=== PATIENT | male | born 1970 | race African-American/Black ===

== ENCOUNTER 2018-03-15 13:26 | Inpatient (IN) | payer OTHER ==
[2018-03-15 14:13] VITALS: BMI 26.9
--- NOTE | 2018-03-15 17:51 | HP ---
CIWA Score - CIWA Score Nausea/Vomitin-No Nausea/No Vomiting Muscle Tremors: 2 Anxiety: 4-Mod. Anxious/Guarded Agitation: 4-Moderately Restless Paroxysmal Sweats: 3 Orientation: 0-Oriented Tacttile Disturbances: 1-Very Mild Itch/Numbness Auditory Disturbances: 1-Very Mild Visual Disturbances: 0-None Headache: 0-None Present CIWA-Ar Total Score: 15 Admission ROS S - HPI Chief Complaint: alcohol withdrawal symptoms Allergies/Adverse Reactions: Allergies Allergy/AdvReac Type Severity Reaction Status Date / Time Penicillins Allergy Verified 03/15/18 17:11 History of Present Illness: 47 yo male with hx of nicotine, alcohol and cocaine dependence is here for alcohol detox. Last detox [facility] 04/08/18 - 04/13/16. PMHX: HIV+, bipolar, depression and depression. Denies suicidal / homicidal ideation. Denies hx of suicide attempts. Reports hx of auditory hallucinations, denies having hallucinations at this time. Denies hx of DTs, seizures or blackouts. Longest period of sobriety three years. Exam Limitations: No Limitations - Ebola screening Have you traveled outside of the country in the last 21 days: No Have you had contact with anyone from an Ebola affected area: No Have you been sick,other than usual withdrawal symptoms: No Do you have a fever: No - Review of Systems Constitutional: Chills, Loss of Appetite, Changes in sleep EENT: reports: Dental Problems (missing teeth) Respiratory: reports: No Symptoms reported Cardiac: reports: No Symptoms Reported GI: reports: Poor Appetite, Poor Fluid Intake : reports: No Symptoms Reported Musculoskeletal: reports: No Symptoms Reported Integumentary: reports: No Symptoms Reported Neuro: reports: Tremors Endocrine: reports: No Symptoms Reported Hematology: reports: No Symptoms Reported Psychiatric: reports: Orientated x3, Anxious Other Systems: Reviewed and Negative Patient History - Patient Medical History Hx Anemia: No Hx Asthma: No Hx Chronic Obstructive Pulmonary Disease (COPD): No Hx Cancer: No Hx Cardiac Disorders: No Hx Congestive Heart Failure: No Hx Hypertension: No Hx Hypercholesterolemia: No Hx Pacemaker: No HX Cerebrovascular Accident: No Hx Seizures: No Hx Dementia: No Hx Diabetes: No Hx Gastrointestinal Disorders: No Hx Liver Disease: No Hx Genitourinary Disorders: No Hx Sexually Transmitted Disorders: No Hx Renal Disease (ESRD): No Hx Thyroid Disease: No Hx Human Immunodeficiency Virus (HIV): Yes ( ) Hx Hepatitis C: No Hx Depression: Yes Hx Suicide Attempt: No Hx Bipolar Disorder: Yes Hx Schizophrenia: No - Patient Surgical History Past Surgical History: No Hx Neurologic Surgery: No Hx Cataract Extraction: No Hx Cardiac Surgery: No Hx Lung Surgery: No Hx Breast Surgery: No Hx Breast Biopsy: No Hx Abdominal Surgery: No Hx Appendectomy: No Hx Cholecystectomy: No Hx Genitourinary Surgery: No Hx Section: No Hx Orthopedic Surgery: No Anesthesia Reaction: No - PPD History Previous Implant?: Yes Documented Results: Negative w/proof Date: 02/13/16 Results: 0 mm PPD to be Administered?: Yes - Smoking Cessation Smoking history: Current every day smoker Have you smoked in the past 12 months: Yes Aproximately how many cigarettes per day: 5 Cigars Per Day: 0 Hx Chewing Tobacco Use: No Initiated information on smoking cessation: Yes 'Breaking Loose' booklet given: 03/15/18 - Substance & Tx. History Hx Alcohol Use: Yes Hx Substance Use: Yes Substance Use Type: Alcohol, Cocaine Hx Substance Use Treatment: Yes (Last detox [facility] 04/08/18 - 04/13/16) - Substances Abused Alcohol Route: Oral Frequency: Daily Amount used: liquor- 5 pints, beer- 2 six pack Age of first use: 9 Date of Last Use: 03/15/18 Crack Route: Smoking Frequency: Daily Amount used: 5 bags Age of first use: 20 Date of Last Use: 03/15/18 Family Disease History - Family Disease History Family Disease History: Other: Father (, liver cirrhosis ) Admission Physical Exam [facility] - Vital Signs Vital Signs: Vital Signs - 24 hr 03/15/18 14:12 Temperature 98.7 F Pulse Rate 98 H Respiratory 20 Rate Blood Pressure 133/73 - Physical General Appearance: Yes: Disheveled, Mild Distress, Alcohol on Breath, Sweating , Anxious HEENTM: Yes: EOMI, Hearing grossly Normal, Normal ENT Inspection, Normocephalic , Normal Voice, AMIRA, Pharynx Normal, Tm's normal, Other (poor dentition) Respiratory: Yes: Within Normal Limits Neck: Yes: Within Normal Limits Breast: Yes: Breast Exam Deferred Cardiology: Yes: Regular Rhythm, Regular Rate Abdominal: Yes: Normal Bowel Sounds, Non Tender, Flat, Soft Genitourinary: Yes: Within Normal Limits Back: Yes: Normal Inspection Musculoskeletal: Yes: full range of Motion, Gait Steady, Pelvis Stable Extremities: Yes: Normal Capillary Refill, Normal Inspection, Normal Range of Motion, Non-Tender Neurological: Yes: soft top installer II-XII NML intact, Fully Oriented, Alert, Motor Strength 5/5, Depressed Affect Integumentary: Yes: Normal Color, Warm, Diaphoresis Lymphatic: Yes: Within Normal Limits - Diagnostic (1) Alcohol dependence with withdrawal, uncomplicated Current Visit: Yes Status: Acute (2) Cocaine dependence, uncomplicated Current Visit: Yes Status: Acute (3) HIV (human immunodeficiency virus infection) Current Visit: Yes Status: Chronic (4) Nicotine dependence Current Visit: Yes Status: Chronic Qualifiers: Nicotine product type: cigarettes Substance use status: uncomplicated Qualified Code(s): F17.210 - Nicotine dependence, cigarettes, uncomplicated (5) Psychiatric disorder Current Visit: Yes Status: Suspected Cleared for Admission [facility] - Detox or Rehab [facility] Level of Care: Medically Managed Detox Regimen/Protocol: Librium [facility] Breath Alcohol Content Breath Alcohol Content: 0.114 Urine Drug Screen - Results Drug Screen Negative: No Urine Drug Screen Results: ESTRELLA-Cocaine
[2018-03-15] MEDS ORDERED: hydrOXYzine PAMOATE 50 MG CAPSULE (FP) PO PRN (17:53)
[2018-03-15] MEDS ORDERED: MAGNESIUM CITRATE 300 ML BOTTLE PO PRN (17:53)
[2018-03-15] MEDS ORDERED: LOPERAMIDE HCL 2 MG CAPSULE PO PRN (17:53)
[2018-03-15] MEDS ORDERED: P-EPHED 60MG/TRIPROLIDI 2.5MG TABLET PO PRN (17:53)
[2018-03-15] MEDS ORDERED: NICOTINE POLACRILEX 2 MG GUM BC PRN (17:53)
[2018-03-15] MEDS ORDERED: MAGNESIUM HYDROX 2400MG/30ML ORAL SUSPENSION 30 ML CUP PO PRN (17:53)
[2018-03-15] MEDS ORDERED: ACETAMINOPHEN 325 MG TABLET (FP) PO PRN (17:53)
[2018-03-15] MEDS ORDERED: guaiFENesin/D-METHORPHAN HB 10 ML UNIT-DOSE CUPS PO PRN (17:53)
[2018-03-15] MEDS ORDERED: MENTHOL/PHENOL 1 EACH UD MM PRN (17:53)
[2018-03-15] MEDS ORDERED: IBUPROFEN 400 MG TABLET (FP) PO PRN (17:53)
[2018-03-15] MEDS ORDERED: chlordiazePOXIDE HCL 25 MG CAPSULE PO PRN (17:53)
[2018-03-15] MEDS ORDERED: MAG HYDROX/AL HYDROX/SIMETH 30 ML UNIT-DOSE CUP PO PRN (17:53)
[2018-03-15] MEDS ORDERED: chlordiazePOXIDE HCL 25 MG CAPSULE PO ONE (18:30)
[2018-03-15] MEDS ORDERED: MELATONIN 5 MG TABLETS PO PRN (22:00)
[2018-03-15] MEDS: THIAMINE HCL 100 MG TABLET (FP) PO SCH (23:15)
[2018-03-15] MEDS: chlordiazePOXIDE HCL 25 MG CAPSULE PO SCH (23:15)
[2018-03-16 01:23] LABS: URINE APPEARANCE CLEAR; URINE BILIRUBIN NEGATIVE (<2.0 mg/dL); URINE COLOR STRAW; URINE GLUCOSE (UA) NEGATIVE (NEGATIVE); URINE KETONE NEGATIVE (NEGATIVE); URINE LEUK ESTERASE NEGATIVE (NEGATIVE); URINE NITRITE NEGATIVE (NEGATIVE); URINE PROTEIN NEGATIVE (NEGATIVE); URINE UROBILINOGEN NEGATIVE mg/dL (0.2-1.0)
[2018-03-16] MEDS: chlordiazePOXIDE HCL 25 MG CAPSULE PO SCH ×4 (05:35→22:23)
--- NOTE | 2018-03-16 09:12 | CONSULT ---
[facility] Psychiatric Consult - Data Date of interview: 03/16/18 Admission source: [facility] Identifying data: This is a 47 years old male, single father of one, unemployed , living with roommate, on PA, with no psychiatric hospitalization history, with history of Bipolar Disorder, history of nicotine, alcohol and cocaine dependence is reporting withdrawal symptoms and is here for alcohol detox. Substance Abuse History: Smoking history: Current every day smoker. Have you smoked in the past 12 months: Yes. Aproximately how many cigarettes per day: 5. Cigars Per Day: 0. Hx Chewing Tobacco Use: No. Initiated information on smoking cessation: Yes. 'Breaking Loose' booklet given: 03/15/18. - Substance & Tx. History. Hx Alcohol Use: Yes. Hx Substance Use: Yes. Substance Use Type : Alcohol, Cocaine. Hx Substance Use Treatment: Yes (Last detox [facility] 04/08/18 - 04/13/16). - Substances Abused. Alcohol. Route: Oral. Frequency: Daily. Amount used: liquor- 5 pints, beer- 2 six pack. Age of first use: 9. Date of Last Use: 03/15/18. Crack. Route: Smoking. Frequency: Daily. Amount used : 5 bags. Age of first use: 20. Date of Last Use: 03/15/18 Medical History: HIV+ Psychiatric History: Patient reports history of Bipolar disorder, history of auditory hallucinations, reports no history of psychiatric admissions, currently on: Haldol 10mg po bid. Celexa 40mg poqd. Topiramate 100mg po bid. Denies suicidal, homicidal history. Physical/Sexual Abuse/Trauma History: Denies Additional Comment: Haldol 10mg po bid. Celexa 40mg poqd. Topiramate 100mg po bid Mental Status Exam - Mental Status Exam Alert and Oriented to: Person Cognitive Function: Fair Patient Appearance: Unkempt Mood: Sad Affect: Flat Patient Behavior: Cooperative Speech Pattern: Appropriate Voice Loudness: Mildly Soft/Quiet Thought Process: Goal Oriented Thought Disorder: Being Controlled Hallucinations: Denies Suicidal Ideation: Denies Homicidal Ideation: Denies Insight/Judgement: Fair Sleep: Difficulty falling asleep Appetite: Fair Muscle strength/Tone: Mild Hypotonicity Gait/Station: Shuffling Additional Comments: Haldol 10mg po bid. Celexa 40mg poqd. Topiramate 100mg po bid Psychiatric Findings - Problem List ([place] 1, 2,3) (1) Alcohol dependence with withdrawal, uncomplicated Current Visit: Yes Status: Acute (2) Cocaine dependence, uncomplicated Current Visit: Yes Status: Acute (3) HIV (human immunodeficiency virus infection) Current Visit: Yes Status: Chronic (4) Nicotine dependence Current Visit: Yes Status: Chronic Qualifiers: Nicotine product type: cigarettes Substance use status: uncomplicated Qualified Code(s): F17.210 - Nicotine dependence, cigarettes, uncomplicated (5) Bipolar I disorder, current or most recent episode manic, severe Current Visit: No Status: Acute (6) Chest pain Current Visit: No Status: Acute Qualifiers: Chest pain type: other chest pain Qualified Code(s): R07.89 - Other chest pain (7) Cocaine abuse Current Visit: No Status: Chronic (8) GERD (gastroesophageal reflux disease) Current Visit: No Status: Chronic Qualifiers: Esophagitis presence: without esophagitis Qualified Code(s): K21.9 - Gastro -esophageal reflux disease without esophagitis - Initial Treatment Plan Initial Treatment Plan: Haldol 10mg po bid. Celexa 40mg poqd. Topiramate 100mg po bid
[2018-03-16 10:27] LABS: HEMATOCRIT 46.3 % (35.4-49); HEMOGLOBIN 15.1 GM/dL (11.7-16.9); MCH 33.5 pg (25.7-33.7); MCHC 32.7 g/dl (32.0-35.9); MEAN CELL VOLUME 102.5 fl (80-96); MEAN PLT VOLUME 7.6 fl (7.5-11.1); PLATELET COUNT 167 K/MM3 (134-434); RBC 4.52 M/mm3 (4.00-5.60); RDW 14.5 % (11.9-15.9); WHITE BLOOD COUNT 3.3 K/mm3 (4.0-10.0)
[2018-03-16] MEDS: TOPIRAMATE 100 MG TABLET PO SCH ×2 (10:30→22:22)
[2018-03-16] MEDS: PRENATAL VITAMINS W/ FOLIC ACID TABLET (FP) PO SCH (10:30)
[2018-03-16] MEDS: HALOPERIDOL 5 MG TABLET (FP) PO SCH ×2 (10:30→22:22)
[2018-03-16] MEDS: CITALOPRAM HYDROBROMIDE 20 MG TABLET (FP) PO SCH (10:30)
[2018-03-16] MEDS: NICOTINE 14 MG/24 HOURS TOPICAL PATCH TD SCH (10:30)
[2018-03-16 10:44] LABS: ALBUMIN 3.5 g/dl (3.4-5.0); ANION GAP 5 MMOL/L (8-16); BLOOD UREA NITROGEN 13 mg/dL (7-18); CALCIUM 10.7 mg/dL (8.5-10.1); CHLORIDE 107 mmol/L (98-107); CO2 29 mmol/L (21-32); CREATININE 1.1 mg/dL (0.7-1.3); GLUCOSE,RANDOM 68 mg/dL (74-106); POTASSIUM 4.1 mmol/L (3.5-5.1); SGOT/AST 35 U/L (15-37); SGPT/ALT 43 U/L (12-78); SODIUM 141 mmol/L (136-145)
[2018-03-16 10:45] LABS: ALK PHOS 86 U/L (45-117); BILIRUBIN,TOTAL 0.4 mg/dL (0.2-1.0); TOT PROT 7.1 g/dl (6.4-8.2)
--- NOTE | 2018-03-16 10:49 | PN ---
S CIWA - CIWA Score Nausea/Vomitin Muscle Tremors: 2 Anxiety: 2 Agitation: 2 Paroxysmal Sweats: 3 Orientation: 0-Oriented Tacttile Disturbances: 1-Very Mild Itch/Numbness Auditory Disturbances: 0-None Visual Disturbances: 0-None Headache: 0-None Present CIWA-Ar Total Score: 13 S Progress Note (SOAP) Subjective: interrupted sleep, sweats, shakes , diarrhea Objective: 03/16/18 11:31 Vital Signs Temperature 97.3 F L 03/16/18 06:09 Pulse Rate 69 03/16/18 06:09 Respiratory Rate 18 03/16/18 06:09 Blood Pressure 131/72 03/16/18 06:09 O2 Sat by Pulse Oximetry (%) Laboratory Tests 03/16/18 03/16/18 03/16/18 00:00 07:30 07:30 WBC 3.3 L RBC 4.52 Hgb 15.1 Hct 46.3 MCV 102.5 H MCH 33.5 MCHC 32.7 RDW 14.5 Plt Count 167 MPV 7.6 Sodium 141 Potassium 4.1 Chloride 107 Carbon Dioxide 29 D Anion Gap 5 L BUN 13 Creatinine 1.1 Creat Clearance w eGFR > 60 Random Glucose 68 L Calcium 10.7 H Total Bilirubin 0.4 AST 35 D ALT 43 D Alkaline Phosphatase 86 Total Protein 7.1 Albumin 3.5 Urine Color Straw Urine Appearance Clear Urine pH 5.0 D Ur Specific [place] 1.009 Urine Protein Negative Urine Glucose (UA) Negative Urine Ketones Negative Urine Blood Negative Urine Nitrite Negative Urine Bilirubin Negative Urine Urobilinogen Negative Ur Leukocyte Esterase Negative pt aox3 lying in bed in nad . Assessment: 03/16/18 11:32 withdrawal sx's hiv elevated ca leucopenia 03/16/18 11:34 03/16/18 11:37 Plan: cont, detox increase fluids imodium prn repeat ca
--- NOTE | 2018-03-16 12:30 | EKG ---
Test Reason : Blood Pressure : / mmHG Vent. Rate : 088 BPM Atrial Rate : 088 BPM P-R Int : 156 ms QRS Dur : 078 ms QT Int : 332 ms P-R-T Axes : 066 018 055 degrees QTc Int : 401 ms NORMAL SINUS RHYTHM NORMAL ECG WHEN COMPARED WITH ECG OF 02-MAR-2016 08:59, NO SIGNIFICANT CHANGE WAS FOUND Confirmed by AMANDA THOMAS MD ([id number]) on 03/16/2018 12:30:26 PM Referred By: Confirmed By:AMANDA THOMAS MD
[2018-03-16] MEDS: THIAMINE HCL 100 MG TABLET (FP) PO SCH (22:22)
[2018-03-17] MEDS: chlordiazePOXIDE HCL 25 MG CAPSULE PO SCH ×3 (06:02→17:43)
[2018-03-17] MEDS: HALOPERIDOL 5 MG TABLET (FP) PO SCH ×2 (10:17→22:23)
[2018-03-17] MEDS: CITALOPRAM HYDROBROMIDE 20 MG TABLET (FP) PO SCH (10:17)
[2018-03-17] MEDS: TOPIRAMATE 100 MG TABLET PO SCH ×2 (10:17→22:25)
[2018-03-17] MEDS: PRENATAL VITAMINS W/ FOLIC ACID TABLET (FP) PO SCH (10:17)
[2018-03-17] MEDS: NICOTINE 14 MG/24 HOURS TOPICAL PATCH TD SCH (10:17)
--- NOTE | 2018-03-17 18:23 | PN ---
[facility] CIWA - CIWA Score Nausea/Vomitin-Mild Nausea/No Vomiting Muscle Tremors: 4-Moderate,w/Arms Extend Anxiety: 1-Mildly Anxious Agitation: 1-Slight > Activity Paroxysmal Sweats: No Perspiration Orientation: 0-Oriented Tacttile Disturbances: 0-None Auditory Disturbances: 0-None Visual Disturbances: 0-None Headache: 0-None Present CIWA-Ar Total Score: 7 [facility] Progress Note (SOAP) Subjective: States feeling shaky and a little anxious. Mild nausea w/o vomiting. States I do feel a lot better today. Objective: Alert and oriented x 3. Hand tremors present. Vital Signs 03/17/18 03/17/18 13:27 17:20 Temperature 98.2 F 98.2 F Pulse Rate 86 62 Respiratory 18 18 Rate Blood Pressure 109/72 100/57 Laboratory Last Values WBC 3.3 K/mm3 (4.0-10.0) L 03/16/18 07:30 RBC 4.52 M/mm3 (4.00-5.60) 03/16/18 07:30 Hgb 15.1 GM/dL (11.7-16.9) 03/16/18 07:30 Hct 46.3 % (35.4-49) 03/16/18 07:30 MCV 102.5 fl (80-96) H 03/16/18 07:30 MCH 33.5 pg (25.7-33.7) 03/16/18 07:30 MCHC 32.7 g/dl (32.0-35.9) 03/16/18 07:30 RDW 14.5 % (11.9-15.9) 03/16/18 07:30 Plt Count 167 K/MM3 (134-434) 03/16/18 07:30 MPV 7.6 fl (7.5-11.1) 03/16/18 07:30 Sodium 141 mmol/L (136-145) 03/16/18 07:30 Potassium 4.1 mmol/L (3.5-5.1) 03/16/18 07:30 Chloride 107 mmol/L (98-107) 03/16/18 07:30 Carbon Dioxide 29 mmol/L (21-32) D 03/16/18 07:30 Anion Gap 5 MMOL/L (8-16) L 03/16/18 07:30 BUN 13 mg/dL (7-18) 03/16/18 07:30 Creatinine 1.1 mg/dL (0.7-1.3) 03/16/18 07:30 Creat Clearance w eGFR > 60 (>60) 03/16/18 07:30 Random Glucose 68 mg/dL (74-106) L 03/16/18 07:30 Calcium 10.7 mg/dL (8.5-10.1) H 03/16/18 07:30 Total Bilirubin 0.4 mg/dL (0.2-1.0) 03/16/18 07:30 AST 35 U/L (15-37) D 03/16/18 07:30 ALT 43 U/L (12-78) D 03/16/18 07:30 Alkaline Phosphatase 86 U/L (45-117) 03/16/18 07:30 Total Protein 7.1 g/dl (6.4-8.2) 03/16/18 07:30 Albumin 3.5 g/dl (3.4-5.0) 03/16/18 07:30 Urine Color Straw 03/16/18 00:00 Urine Appearance Clear 03/16/18 00:00 Urine pH 5.0 (5.0-8.0) D 03/16/18 00:00 Ur Specific [place] 1.009 (1.001-1.035) 03/16/18 00:00 Urine Protein Negative (NEGATIVE) 03/16/18 00:00 Urine Glucose (UA) Negative (NEGATIVE) 03/16/18 00:00 Urine Ketones Negative (NEGATIVE) 03/16/18 00:00 Urine Blood Negative (NEGATIVE) 03/16/18 00:00 Urine Nitrite Negative (NEGATIVE) 03/16/18 00:00 Urine Bilirubin Negative (<2.0 mg/dL) 03/16/18 00:00 Urine Urobilinogen Negative mg/dL (0.2-1.0) 03/16/18 00:00 Ur Leukocyte Esterase Negative (NEGATIVE) 03/16/18 00:00 RPR Titer Nonreactive (NONREACTIVE) 03/16/18 07:30 Labs reviewed. Assessment: Alcohol withdrawal symptoms. Plan: Continue detox. Encourage increased water/fluid intake.
[2018-03-17] MEDS: THIAMINE HCL 100 MG TABLET (FP) PO SCH (22:23)
[2018-03-17] MEDS: chlordiazePOXIDE 5 MG CAPSULE PO SCH (23:06)
[2018-03-18] MEDS: chlordiazePOXIDE 5 MG CAPSULE PO SCH ×3 (06:02→17:56)
[2018-03-18] MEDS: HALOPERIDOL 5 MG TABLET (FP) PO SCH ×2 (10:36→22:41)
[2018-03-18] MEDS: PRENATAL VITAMINS W/ FOLIC ACID TABLET (FP) PO SCH (10:36)
[2018-03-18] MEDS: CITALOPRAM HYDROBROMIDE 20 MG TABLET (FP) PO SCH (10:36)
[2018-03-18] MEDS: TOPIRAMATE 100 MG TABLET PO SCH ×2 (10:37→22:41)
[2018-03-18] MEDS: NICOTINE 14 MG/24 HOURS TOPICAL PATCH TD SCH (10:37)
--- NOTE | 2018-03-18 18:11 | PN ---
[facility] Progress Note (SOAP) Subjective: States feeling much better. Feels a bit anxious. Objective: A&O x 3. Mild tremors of hands. Vital Signs 03/18/18 03/18/18 13:14 17:21 Temperature 97.7 F 96.4 F L Pulse Rate 76 66 Respiratory 18 16 Rate Blood Pressure 120/76 100/57 Laboratory Last Values WBC 3.3 K/mm3 (4.0-10.0) L 03/16/18 07:30 RBC 4.52 M/mm3 (4.00-5.60) 03/16/18 07:30 Hgb 15.1 GM/dL (11.7-16.9) 03/16/18 07:30 Hct 46.3 % (35.4-49) 03/16/18 07:30 MCV 102.5 fl (80-96) H 03/16/18 07:30 MCH 33.5 pg (25.7-33.7) 03/16/18 07:30 MCHC 32.7 g/dl (32.0-35.9) 03/16/18 07:30 RDW 14.5 % (11.9-15.9) 03/16/18 07:30 Plt Count 167 K/MM3 (134-434) 03/16/18 07:30 MPV 7.6 fl (7.5-11.1) 03/16/18 07:30 Sodium 141 mmol/L (136-145) 03/16/18 07:30 Potassium 4.1 mmol/L (3.5-5.1) 03/16/18 07:30 Chloride 107 mmol/L (98-107) 03/16/18 07:30 Carbon Dioxide 29 mmol/L (21-32) D 03/16/18 07:30 Anion Gap 5 MMOL/L (8-16) L 03/16/18 07:30 BUN 13 mg/dL (7-18) 03/16/18 07:30 Creatinine 1.1 mg/dL (0.7-1.3) 03/16/18 07:30 Creat Clearance w eGFR > 60 (>60) 03/16/18 07:30 Random Glucose 68 mg/dL (74-106) L 03/16/18 07:30 Calcium 10.7 mg/dL (8.5-10.1) H 03/16/18 07:30 Total Bilirubin 0.4 mg/dL (0.2-1.0) 03/16/18 07:30 AST 35 U/L (15-37) D 03/16/18 07:30 ALT 43 U/L (12-78) D 03/16/18 07:30 Alkaline Phosphatase 86 U/L (45-117) 03/16/18 07:30 Total Protein 7.1 g/dl (6.4-8.2) 03/16/18 07:30 Albumin 3.5 g/dl (3.4-5.0) 03/16/18 07:30 Urine Color Straw 03/16/18 00:00 Urine Appearance Clear 03/16/18 00:00 Urine pH 5.0 (5.0-8.0) D 03/16/18 00:00 Ur Specific [place] 1.009 (1.001-1.035) 03/16/18 00:00 Urine Protein Negative (NEGATIVE) 03/16/18 00:00 Urine Glucose (UA) Negative (NEGATIVE) 03/16/18 00:00 Urine Ketones Negative (NEGATIVE) 03/16/18 00:00 Urine Blood Negative (NEGATIVE) 03/16/18 00:00 Urine Nitrite Negative (NEGATIVE) 03/16/18 00:00 Urine Bilirubin Negative (<2.0 mg/dL) 03/16/18 00:00 Urine Urobilinogen Negative mg/dL (0.2-1.0) 03/16/18 00:00 Ur Leukocyte Esterase Negative (NEGATIVE) 03/16/18 00:00 RPR Titer Nonreactive (NONREACTIVE) 03/16/18 07:30 Labs reviewed. Assessment: Resolving withdrawal symptoms. Plan: Continue detox
[2018-03-18] MEDS: chlordiazePOXIDE HCL 10 MG CAPSULE PO SCH (22:41)
[2018-03-18] MEDS: THIAMINE HCL 100 MG TABLET (FP) PO SCH (22:41)
[2018-03-19] MEDS: chlordiazePOXIDE HCL 10 MG CAPSULE PO SCH (05:09)
[2018-03-19] MEDS: TOPIRAMATE 100 MG TABLET PO SCH (09:26)
[2018-03-19] MEDS: PRENATAL VITAMINS W/ FOLIC ACID TABLET (FP) PO SCH (09:26)
[2018-03-19] MEDS: NICOTINE 14 MG/24 HOURS TOPICAL PATCH TD SCH (09:26)
[2018-03-19] MEDS: CITALOPRAM HYDROBROMIDE 20 MG TABLET (FP) PO SCH (09:26)
[2018-03-19] MEDS: HALOPERIDOL 5 MG TABLET (FP) PO SCH (09:26)
[2018-03-19 09:33] VITALS: BP 121/68; PULSE 81; TEMP 97.5
--- NOTE | 2018-03-19 11:12 | PN ---
S Progress Note (SOAP) Subjective: Denies any complaints Objective: 03/19/18 11:11 A & O x 3, ambulatory, not in distress Vital Signs Temperature 97.5 F L 03/19/18 09:33 Pulse Rate 81 03/19/18 09:33 Respiratory Rate 18 03/19/18 09:33 Blood Pressure 121/68 03/19/18 09:33 O2 Sat by Pulse Oximetry (%) Assessment: 03/19/18 11:11 detox successfully completed Plan: for discharge
--- NOTE | 2018-03-19 11:21 | DS ---
[facility] Detox Discharge Summary Admission Date: 03/15/18 Discharge Date: 03/19/18 - History Additional Comments: pt A & O x 3, discharged and going to [facility] today per discussions with Counselor. Pt will call [facility] on wednesday for a rehab bed. Stated he will do AA meeting till he gets a bed at [facility]. Pt will follow up with his PMD at [facility] for re-instatement on the anti-retrovirals. Verbalized undesrtanding. Pertinent Past History: HIV, GERD, psych dx - Physical Exam Results Vital Signs: Vital Signs Temperature 97.5 F L 03/19/18 09:33 Pulse Rate 81 03/19/18 09:33 Respiratory Rate 18 03/19/18 09:33 Blood Pressure 121/68 03/19/18 09:33 O2 Sat by Pulse Oximetry (%) Pertinent Admission Physical Exam Findings: withdrawal sx - Treatment Hospital Course: Detox Protocol Followed, Detoxed Safely, Responded well, Discharged Condition Good, Rehab Referral Accepted Patient has Accepted a Rehab Referral to: AA meetings - Medication Discharge Medications: Ambulatory Orders Emtricitabine/Tenofovir [Truvada -] 1 tab PO DAILY 02/11/16 Darunavir Ethanolate [Prezista -] 800 mg PO DAILY tablet 02/16/16 Citalopram Hydrobromide [Celexa -] 40 mg PO DAILY #30 tablet 03/16/18 Haloperidol [Haldol -] 10 mg PO BID #60 tablet 03/16/18 Topiramate 100 mg PO BID #60 tablet 03/16/18 - Diagnosis (1) Alcohol dependence with withdrawal, uncomplicated Status: Acute (2) Cocaine dependence, uncomplicated Status: Chronic (3) HIV (human immunodeficiency virus infection) Status: Chronic (4) Nicotine dependence Status: Chronic Qualifiers: Nicotine product type: cigarettes Substance use status: uncomplicated Qualified Code(s): F17.210 - Nicotine dependence, cigarettes, uncomplicated - AMA Did Patient Leave Against Medical Advice: No
== END 2018-03-19 09:27 | disposition home or self-care (01) | DRG 773 ==
LOC: YASAS 13:26 → Y6N 18:13
PROC: HZ2ZZZZ Detoxification Services for Substance Abuse Treatment (ICD-10-PCS; principal; 2018-03-15)
DX: F10.230 Alcohol dependence with withdrawal, uncomplicated (principal); F11.20 Opioid dependence, uncomplicated; F14.20 Cocaine dependence, uncomplicated; F17.210 Nicotine dependence, cigarettes, uncomplicated; F31.13 Bipolar disorder, current episode manic without psychotic features, severe; F99 Mental disorder, not otherwise specified; Z21 Asymptomatic human immunodeficiency virus [HIV] infection status; R07.89 Other chest pain; Z88.0 Allergy status to penicillin
CPT/HCPCS: 36415; 80053; 81003; 85027; 86593; 93005; 93010

== ENCOUNTER 2019-03-27 09:21 | Inpatient (IN) | payer OTHER ==
[2019-03-27 09:46] VITALS: BMI 29.6
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
[2019-03-27] MEDS ORDERED: chlordiazePOXIDE HCL 25 MG CAPSULE PO PRN (10:36)
[2019-03-27] MEDS ORDERED: IBUPROFEN 400 MG TABLET (FP) PO PRN (10:36)
[2019-03-27] MEDS ORDERED: METHOCARBAMOL 500 MG TABLET PO PRN (10:36)
[2019-03-27] MEDS ORDERED: MELATONIN 5 MG TABLETS PO PRN (10:36)
[2019-03-27] MEDS ORDERED: ACETAMINOPHEN 325 MG TABLET (FP) PO PRN ×2 (10:36)
[2019-03-27] MEDS ORDERED: MAG HYDROX/AL HYDROX/SIMETH 30 ML UNIT-DOSE CUP PO PRN (10:36)
[2019-03-27] MEDS ORDERED: MAGNESIUM CITRATE 300 ML BOTTLE PO PRN (10:36)
[2019-03-27] MEDS ORDERED: MAGNESIUM HYDROX 2400MG/30ML ORAL SUSPENSION 30 ML CUP PO PRN (10:36)
[2019-03-27] MEDS ORDERED: MENTHOL/PHENOL 1 EACH UD MM PRN (10:36)
[2019-03-27] MEDS ORDERED: hydrOXYzine PAMOATE 25 MG CAPSULE (FP) PO PRN (10:36)
[2019-03-27] MEDS ORDERED: BISMUTH SUBSALICYLATE 524 MG/30 ML UD PO PRN (10:36)
[2019-03-27] MEDS: NICOTINE 7 MG/24 HOURS TOPICAL PATCH TD SCH (12:46)
[2019-03-27 14:18] LABS: HEMATOCRIT 45.7 % (35.4-49); HEMOGLOBIN 15.7 GM/dL (11.7-16.9); MCH 34.5 pg (25.7-33.7); MCHC 34.4 g/dl (32.0-35.9); MEAN CELL VOLUME 100.5 fl (80-96); MEAN PLT VOLUME 7.6 fl (7.5-11.1); PLATELET COUNT 215 K/MM3 (134-434); RBC 4.55 M/mm3 (4.00-5.60); RDW 14.3 % (11.9-15.9); WHITE BLOOD COUNT 5.4 K/mm3 (4.0-10.0)
[2019-03-27 14:25] LABS: BILIRUBIN,TOTAL 0.4 mg/dL (0.2-1); BLOOD UREA NITROGEN 18.2 mg/dL (7-18); CALCIUM 11.7 mg/dL (8.5-10.1); CREATININE 1.1 mg/dL (0.55-1.3); POTASSIUM 4.2 mmol/L (3.5-5.1); TOT PROT 8.1 g/dl (6.4-8.2)
[2019-03-27] MEDS: ELVITEG/COB/EMTRI/TENOF (GENVOYA) TABLET (NF) PO SCH (15:34)
[2019-03-27] MEDS: PATIENT'S OWN MEDICATION (NON-FORMULARY) (Citalopram Hydrobromide [Celexa -] 40 MG) PO SCH (15:34)
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
[2019-03-27] MEDS: chlordiazePOXIDE HCL 25 MG CAPSULE PO SCH ×2 (17:46→22:15)
[2019-03-27] MEDS: BENZTROPINE MESYLATE PO SCH (22:15)
[2019-03-27] MEDS: THIAMINE HCL 100 MG TABLET (FP) PO SCH (22:15)
[2019-03-27] MEDS: PATIENT'S OWN MEDICATION (NON-FORMULARY) (Olanzapine [Olanzapine] 15 MG) PO SCH (22:16)
[2019-03-27] MEDS: TOPIRAMATE 100 MG TABLET PO SCH (22:17)
[2019-03-28] MEDS: chlordiazePOXIDE HCL 25 MG CAPSULE PO SCH ×4 (05:51→22:05)
[2019-03-28] MEDS: ELVITEG/COB/EMTRI/TENOF (GENVOYA) TABLET (NF) PO SCH (07:31)
[2019-03-28] MEDS: PRENATAL VITAMINS W/ FOLIC ACID TABLET (FP) PO SCH (10:05)
[2019-03-28] MEDS: BENZTROPINE MESYLATE PO SCH ×2 (10:06→22:06)
[2019-03-28] MEDS: TOPIRAMATE 100 MG TABLET PO SCH ×2 (10:06→22:06)
--- NOTE | 2019-03-28 10:06 | PN ---
S CIWA - CIWA Score Nausea/Vomitin Muscle Tremors: 2 Anxiety: 2 Agitation: 2 Paroxysmal Sweats: 1-Minimal Palms Moist Orientation: 0-Oriented Tacttile Disturbances: 1-Very Mild Itch/Numbness Auditory Disturbances: 0-None Visual Disturbances: 0-None Headache: 2-Mild CIWA-Ar Total Score: 12 [facility] Progress Note (SOAP) Subjective: alert,irritable,anxious,interrupted sleep,tremor Objective: 03/28/19 10:03 Vital Signs Temperature 97.2 F L 03/28/19 09:11 Pulse Rate 85 03/28/19 09:11 Respiratory Rate 18 03/28/19 09:11 Blood Pressure 116/85 03/28/19 09:11 O2 Sat by Pulse Oximetry (%) Laboratory Last Values WBC 5.4 K/mm3 (4.0-10.0) 03/27/19 11:00 RBC 4.55 M/mm3 (4.00-5.60) 03/27/19 11:00 Hgb 15.7 GM/dL (11.7-16.9) 03/27/19 11:00 Hct 45.7 % (35.4-49) 03/27/19 11:00 MCV 100.5 fl (80-96) H 03/27/19 11:00 MCH 34.5 pg (25.7-33.7) H 03/27/19 11:00 MCHC 34.4 g/dl (32.0-35.9) 03/27/19 11:00 RDW 14.3 % (11.9-15.9) 03/27/19 11:00 Plt Count 215 K/MM3 (134-434) D 03/27/19 11:00 MPV 7.6 fl (7.5-11.1) 03/27/19 11:00 Sodium 138 mmol/L (136-145) 03/27/19 11:00 Potassium 4.2 mmol/L (3.5-5.1) 03/27/19 11:00 Chloride 104 mmol/L (98-107) 03/27/19 11:00 Carbon Dioxide 26 mmol/L (21-32) 03/27/19 11:00 Anion Gap 8 MMOL/L (8-16) 03/27/19 11:00 BUN 18.2 mg/dL (7-18) H 03/27/19 11:00 Creatinine 1.1 mg/dL (0.55-1.3) 03/27/19 11:00 Est GFR (CKD-EPI)AfAm 91.52 03/27/19 11:00 Est GFR (CKD-EPI)NonAf 78.96 03/27/19 11:00 Random Glucose 86 mg/dL (74-106) 03/27/19 11:00 Calcium 11.7 mg/dL (8.5-10.1) H 03/27/19 11:00 Total Bilirubin 0.4 mg/dL (0.2-1) 03/27/19 11:00 AST 62 U/L (15-37) H 03/27/19 11:00 ALT 37 U/L (13-61) 03/27/19 11:00 Alkaline Phosphatase 82 U/L (45-117) 03/27/19 11:00 Total Protein 8.1 g/dl (6.4-8.2) 03/27/19 11:00 Albumin 4.0 g/dl (3.4-5.0) 03/27/19 11:00 Assessment: 03/28/19 10:05 withdrawal symptom Plan: continue detox librium,encourage oral fluid,hydration,calcium 11.7,bun 18.2, will repeat bmp and calcium in am
[2019-03-28] MEDS: PATIENT'S OWN MEDICATION (NON-FORMULARY) (Citalopram Hydrobromide [Celexa -] 40 MG) PO SCH (10:07)
--- NOTE | 2019-03-28 10:25 | EKG ---
Test Reason : Blood Pressure : / mmHG Vent. Rate : 077 BPM Atrial Rate : 077 BPM P-R Int : 162 ms QRS Dur : 090 ms QT Int : 360 ms P-R-T Axes : 067 017 055 degrees QTc Int : 407 ms NORMAL SINUS RHYTHM NORMAL ECG WHEN COMPARED WITH ECG OF 15-MAR-2018 19:31, NO SIGNIFICANT CHANGE WAS FOUND Confirmed by MD Quevedo Edward ([id number]) on 03/28/2019 10:24:57 AM Referred By: Confirmed By:Alex Quevedo MD
[2019-03-28] MEDS: NICOTINE 7 MG/24 HOURS TOPICAL PATCH TD SCH (11:31)
[2019-03-28] MEDS: THIAMINE HCL 100 MG TABLET (FP) PO SCH (22:05)
[2019-03-28] MEDS: PATIENT'S OWN MEDICATION (NON-FORMULARY) (Olanzapine [Olanzapine] 15 MG) PO SCH (22:06)
[2019-03-29] MEDS: chlordiazePOXIDE HCL 25 MG CAPSULE PO SCH ×4 (05:55→22:11)
[2019-03-29] MEDS: ELVITEG/COB/EMTRI/TENOF (GENVOYA) TABLET (NF) PO SCH (07:20)
[2019-03-29 10:07] LABS: BLOOD UREA NITROGEN 25.2 mg/dL (7-18); CALCIUM 10.5 mg/dL (8.5-10.1); CREATININE 1.2 mg/dL (0.55-1.3); POTASSIUM 3.9 mmol/L (3.5-5.1)
[2019-03-29] MEDS: TOPIRAMATE 100 MG TABLET PO SCH ×2 (10:15→22:11)
[2019-03-29] MEDS: BENZTROPINE MESYLATE PO SCH ×2 (10:16→22:11)
[2019-03-29] MEDS: PRENATAL VITAMINS W/ FOLIC ACID TABLET (FP) PO SCH (10:16)
[2019-03-29] MEDS: PATIENT'S OWN MEDICATION (NON-FORMULARY) (Citalopram Hydrobromide [Celexa -] 40 MG) PO SCH (10:16)
[2019-03-29] MEDS: NICOTINE 7 MG/24 HOURS TOPICAL PATCH TD SCH (10:16)
--- NOTE | 2019-03-29 14:26 | PN ---
[facility] CIWA - CIWA Score Nausea/Vomitin-Mild Nausea/No Vomiting Muscle Tremors: 3 Anxiety: 3 Agitation: 2 Paroxysmal Sweats: 1-Minimal Palms Moist Orientation: 0-Oriented Tacttile Disturbances: 1-Very Mild Itch/Numbness Auditory Disturbances: 0-None Visual Disturbances: 0-None Headache: 0-None Present CIWA-Ar Total Score: 11 S Progress Note (SOAP) Subjective: doing well with librium detox regimen mild sweat less tremor loose stool pepto no working discontinue pepto imodium 4 mg x 1 Objective: 03/29/19 14:32 Vital Signs Temperature 98.7 F 03/29/19 13:06 Pulse Rate 81 03/29/19 13:06 Respiratory Rate 18 03/29/19 13:06 Blood Pressure 108/75 03/29/19 13:06 O2 Sat by Pulse Oximetry (%) Laboratory Last Values WBC 5.4 K/mm3 (4.0-10.0) 03/27/19 11:00 RBC 4.55 M/mm3 (4.00-5.60) 03/27/19 11:00 Hgb 15.7 GM/dL (11.7-16.9) 03/27/19 11:00 Hct 45.7 % (35.4-49) 03/27/19 11:00 MCV 100.5 fl (80-96) H 03/27/19 11:00 MCH 34.5 pg (25.7-33.7) H 03/27/19 11:00 MCHC 34.4 g/dl (32.0-35.9) 03/27/19 11:00 RDW 14.3 % (11.9-15.9) 03/27/19 11:00 Plt Count 215 K/MM3 (134-434) D 03/27/19 11:00 MPV 7.6 fl (7.5-11.1) 03/27/19 11:00 Sodium 143 mmol/L (136-145) 03/29/19 08:20 Potassium 3.9 mmol/L (3.5-5.1) 03/29/19 08:20 Chloride 111 mmol/L (98-107) H 03/29/19 08:20 Carbon Dioxide 28 mmol/L (21-32) 03/29/19 08:20 Anion Gap 4 MMOL/L (8-16) L 03/29/19 08:20 BUN 25.2 mg/dL (7-18) H 03/29/19 08:20 Creatinine 1.2 mg/dL (0.55-1.3) 03/29/19 08:20 Est GFR (CKD-EPI)AfAm 82.38 03/29/19 08:20 Est GFR (CKD-EPI)NonAf 71.08 03/29/19 08:20 Random Glucose 87 mg/dL (74-106) 03/29/19 08:20 Calcium 10.5 mg/dL (8.5-10.1) H 03/29/19 08:20 Total Bilirubin 0.4 mg/dL (0.2-1) 03/27/19 11:00 AST 62 U/L (15-37) H 03/27/19 11:00 ALT 37 U/L (13-61) 03/27/19 11:00 Alkaline Phosphatase 82 U/L (45-117) 03/27/19 11:00 Total Protein 8.1 g/dl (6.4-8.2) 03/27/19 11:00 Albumin 4.0 g/dl (3.4-5.0) 03/27/19 11:00 RPR Titer Nonreactive (NONREACTIVE) 03/27/19 11:00 lab noted bun elevation Assessment: 03/29/19 14:33 alcohol withdrawal sx Plan: continue librium detox regimen
[2019-03-29] MEDS ORDERED: LOPERAMIDE HCL 2 MG CAPSULE PO ONE (14:45)
[2019-03-29] MEDS: PATIENT'S OWN MEDICATION (NON-FORMULARY) (Olanzapine [Olanzapine] 15 MG) PO SCH (22:11)
[2019-03-29] MEDS: THIAMINE HCL 100 MG TABLET (FP) PO SCH (22:11)
[2019-03-30] MEDS ORDERED: chlordiazePOXIDE HCL 10 MG CAPSULE PO PRN
[2019-03-30] MEDS: chlordiazePOXIDE HCL 10 MG CAPSULE PO SCH ×4 (05:48→22:03)
[2019-03-30] MEDS: ELVITEG/COB/EMTRI/TENOF (GENVOYA) TABLET (NF) PO SCH (07:14)
--- NOTE | 2019-03-30 09:22 | PN ---
[facility] CIWA - CIWA Score Nausea/Vomitin-Mild Nausea/No Vomiting Muscle Tremors: 3 Anxiety: 2 Agitation: 2 Paroxysmal Sweats: 2 Orientation: 0-Oriented Tacttile Disturbances: 0-None Auditory Disturbances: 0-None Visual Disturbances: 0-None Headache: 0-None Present CIWA-Ar Total Score: 10 [facility] Progress Note (SOAP) Subjective: doing well with librium detox regimen less tremor mild anxiety feeling dizziness hold librium one dose around 10 am Objective: 03/30/19 09:29 Vital Signs Temperature 97.2 F L 03/30/19 09:18 Pulse Rate 77 03/30/19 09:18 Respiratory Rate 18 03/30/19 09:18 Blood Pressure 104/72 03/30/19 09:18 O2 Sat by Pulse Oximetry (%) Laboratory Last Values WBC 5.4 K/mm3 (4.0-10.0) 03/27/19 11:00 RBC 4.55 M/mm3 (4.00-5.60) 03/27/19 11:00 Hgb 15.7 GM/dL (11.7-16.9) 03/27/19 11:00 Hct 45.7 % (35.4-49) 03/27/19 11:00 MCV 100.5 fl (80-96) H 03/27/19 11:00 MCH 34.5 pg (25.7-33.7) H 03/27/19 11:00 MCHC 34.4 g/dl (32.0-35.9) 03/27/19 11:00 RDW 14.3 % (11.9-15.9) 03/27/19 11:00 Plt Count 215 K/MM3 (134-434) D 03/27/19 11:00 MPV 7.6 fl (7.5-11.1) 03/27/19 11:00 Sodium 143 mmol/L (136-145) 03/29/19 08:20 Potassium 3.9 mmol/L (3.5-5.1) 03/29/19 08:20 Chloride 111 mmol/L (98-107) H 03/29/19 08:20 Carbon Dioxide 28 mmol/L (21-32) 03/29/19 08:20 Anion Gap 4 MMOL/L (8-16) L 03/29/19 08:20 BUN 25.2 mg/dL (7-18) H 03/29/19 08:20 Creatinine 1.2 mg/dL (0.55-1.3) 03/29/19 08:20 Est GFR (CKD-EPI)AfAm 82.38 03/29/19 08:20 Est GFR (CKD-EPI)NonAf 71.08 03/29/19 08:20 Random Glucose 87 mg/dL (74-106) 03/29/19 08:20 Calcium 10.5 mg/dL (8.5-10.1) H 03/29/19 08:20 Total Bilirubin 0.4 mg/dL (0.2-1) 03/27/19 11:00 AST 62 U/L (15-37) H 03/27/19 11:00 ALT 37 U/L (13-61) 03/27/19 11:00 Alkaline Phosphatase 82 U/L (45-117) 03/27/19 11:00 Total Protein 8.1 g/dl (6.4-8.2) 03/27/19 11:00 Albumin 4.0 g/dl (3.4-5.0) 03/27/19 11:00 RPR Titer Nonreactive (NONREACTIVE) 03/27/19 11:00 lab noted Assessment: 03/30/19 09:29 alcohol withdrawal sx Plan: continue librium detox regimen
[2019-03-30] MEDS: BENZTROPINE MESYLATE PO SCH ×2 (10:11→22:03)
[2019-03-30] MEDS: TOPIRAMATE 100 MG TABLET PO SCH ×2 (10:11→22:03)
[2019-03-30] MEDS: PRENATAL VITAMINS W/ FOLIC ACID TABLET (FP) PO SCH (10:12)
[2019-03-30] MEDS: PATIENT'S OWN MEDICATION (NON-FORMULARY) (Citalopram Hydrobromide [Celexa -] 40 MG) PO SCH (10:12)
[2019-03-30] MEDS: NICOTINE 7 MG/24 HOURS TOPICAL PATCH TD SCH (10:13)
[2019-03-30] MEDS: PATIENT'S OWN MEDICATION (NON-FORMULARY) (Olanzapine [Olanzapine] 15 MG) PO SCH (22:03)
[2019-03-30] MEDS: THIAMINE HCL 100 MG TABLET (FP) PO SCH (22:03)
[2019-03-31] MEDS ORDERED: chlordiazePOXIDE HCL 10 MG CAPSULE PO SCH (05:00)
[2019-03-31] MEDS: ELVITEG/COB/EMTRI/TENOF (GENVOYA) TABLET (NF) PO SCH (08:45)
[2019-03-31 09:21] VITALS: BP 135/82; PULSE 94; TEMP 98.4
[2019-03-31] MEDS: PRENATAL VITAMINS W/ FOLIC ACID TABLET (FP) PO SCH (09:29)
[2019-03-31] MEDS: TOPIRAMATE 100 MG TABLET PO SCH (09:29)
[2019-03-31] MEDS: BENZTROPINE MESYLATE PO SCH (09:30)
[2019-03-31] MEDS: PATIENT'S OWN MEDICATION (NON-FORMULARY) (Citalopram Hydrobromide [Celexa -] 40 MG) PO SCH (09:30)
[2019-03-31] MEDS: NICOTINE 7 MG/24 HOURS TOPICAL PATCH TD SCH (09:33)
--- NOTE | 2019-03-31 19:17 | DS ---
[facility] Detox Discharge Summary Admission Date: 03/27/19 Discharge Date: 03/31/19 - History Present History: Alcohol Dependence, Cocaine Dependence Additional Comments: PATIENT GOING TOP THE [facility] ([place], [place] ) FOR AFTERCARE. PATIENT WAS DISCHARGED FROM DETOX UNIT IN STABLE MEDICAL CONDITION. Pertinent Past History: Nicotine Dependence, Insomnia, H.I.V., Depression, Bipolar Disorder, Schizophrenia, Insomnia. - Physical Exam Results Vital Signs: Vital Signs Temperature 98.4 F 03/31/19 09:20 Pulse Rate 94 H 03/31/19 09:20 Respiratory Rate 03/31/19 09:20 Blood Pressure 135/82 03/31/19 09:20 O2 Sat by Pulse Oximetry (%) Pertinent Admission Physical Exam Findings: WITHDRAWAL SYMPTOMS. Laboratory Tests 03/27/19 03/27/19 03/27/19 11:00 11:00 11:00 WBC 5.4 RBC 4.55 Hgb 15.7 Hct 45.7 MCV 100.5 H MCH 34.5 H MCHC 34.4 RDW 14.3 Plt Count 215 D MPV 7.6 Sodium 138 Potassium 4.2 Chloride 104 Carbon Dioxide 26 Anion Gap 8 BUN 18.2 H Creatinine 1.1 Est GFR (CKD-EPI)AfAm 91.52 Est GFR (CKD-EPI)NonAf 78.96 Random Glucose 86 Calcium 11.7 H Total Bilirubin 0.4 AST 62 H ALT 37 Alkaline Phosphatase 82 Total Protein 8.1 Albumin 4.0 RPR Titer Nonreactive 03/29/19 08:20 WBC RBC Hgb Hct MCV MCH MCHC RDW Plt Count MPV Sodium 143 Potassium 3.9 Chloride 111 H Carbon Dioxide 28 Anion Gap 4 L BUN 25.2 H Creatinine 1.2 Est GFR (CKD-EPI)AfAm 82.38 Est GFR (CKD-EPI)NonAf 71.08 Random Glucose 87 Calcium 10.5 H Total Bilirubin AST ALT Alkaline Phosphatase Total Protein Albumin RPR Titer LABS NOTED. - Treatment Hospital Course: Detox Protocol Followed, Detoxed Safely, Responded well, Discharged Condition Good Patient has Accepted a Rehab Referral to: [facility] ([place], [place]). - Medication Discharge Medications: Ambulatory Orders Citalopram Hydrobromide [Celexa -] 40 mg PO DAILY #30 tablet 03/16/18 Topiramate 100 mg PO BID #60 tablet 03/16/18 Benztropine Mesylate [Cogentin -] 0.5 mg PO BID 03/27/19 Elviteg/Cob/Emtri/Tenof Alafen [Genvoya Tablet] 1 each PO DAILY 03/27/19 Olanzapine 15 mg PO HS 03/27/19 - Diagnosis (1) Alcohol dependence with withdrawal, uncomplicated Status: Acute (2) Bipolar disorder Status: Chronic Qualifiers: Active/Remission status: remission status unspecified Qualified Code(s): F31.9 - Bipolar disorder, unspecified (3) Cocaine dependence, uncomplicated Status: Chronic (4) HIV (human immunodeficiency virus infection) Status: Chronic Qualifiers: HIV symptom status: unspecified Qualified Code(s): B20 - Human immunodeficiency virus [HIV] disease (5) Insomnia Status: Chronic Qualifiers: Insomnia type: unspecified Qualified Code(s): G47.00 - Insomnia, unspecified (6) Nicotine dependence Status: Chronic Qualifiers: Nicotine product type: cigarettes Substance use status: uncomplicated Qualified Code(s): F17.210 - Nicotine dependence, cigarettes, uncomplicated (7) Substance induced mood disorder Status: Chronic (8) Schizophrenia Status: Suspected Qualifiers: Schizophrenia type: unspecified Qualified Code(s): F20.9 - Schizophrenia, unspecified - AMA Did Patient Leave Against Medical Advice: No [facility] CIWA - CIWA Score Nausea/Vomitin-No Nausea/No Vomiting Muscle Tremors: None Anxiety: 2 Agitation: 0-Normal Activity Paroxysmal Sweats: No Perspiration Orientation: 0-Oriented Tacttile Disturbances: 0-None Auditory Disturbances: 0-None Visual Disturbances: 0-None Headache: 0-None Present CIWA-Ar Total Score: 2
[2019-04-01] MEDS ORDERED: chlordiazePOXIDE HCL 10 MG CAPSULE PO ONE (05:00)
== END 2019-03-31 09:48 | disposition home or self-care (01) | DRG 774 ==
LOC: YASAS 09:21 → Y3N 10:59
PROVIDERS: ADMIT Surgery; ATTEND Surgery
PROC: HZ2ZZZZ Detoxification Services for Substance Abuse Treatment (ICD-10-PCS; principal; 2019-03-27)
DX: F10.230 Alcohol dependence with withdrawal, uncomplicated (principal); F14.20 Cocaine dependence, uncomplicated; F17.210 Nicotine dependence, cigarettes, uncomplicated; F20.9 Schizophrenia, unspecified; F19.24 Other psychoactive substance dependence with psychoactive substance-induced mood disorder; F31.9 Bipolar disorder, unspecified; Z21 Asymptomatic human immunodeficiency virus [HIV] infection status; G47.00 Insomnia, unspecified
CPT/HCPCS: 36415; 80048; 80053; 85027; 86593; 93005; 93010

== ENCOUNTER 2020-11-26 20:17 | Inpatient (IN) | payer OTHER ==
[2020-11-26 21:21] VITALS: BMI 26.6
[2020-11-27] MEDS ORDERED: MAGNESIUM HYDROX 2400MG/30ML ORAL SUSPENSION 30 ML CUP PO PRN ×2 (00:32→00:35)
[2020-11-27] MEDS ORDERED: MAGNESIUM CITRATE 300 ML BOTTLE PO PRN ×2 (00:32→00:35)
[2020-11-27] MEDS ORDERED: MAG HYDROX/AL HYDROX/SIMETH 30 ML UNIT-DOSE CUP PO PRN ×2 (00:32→00:35)
[2020-11-27] MEDS ORDERED: ONDANSETRON *ODT* 4 MG TABLET SL PRN ×2 (00:32→00:35)
[2020-11-27] MEDS ORDERED: MENTHOL/PHENOL 1 EACH UD MM PRN ×2 (00:32→00:35)
[2020-11-27] MEDS ORDERED: NICOTINE POLACRILEX 2 MG GUM BUC PRN ×2 (00:32→00:35)
[2020-11-27] MEDS ORDERED: chlordiazePOXIDE HCL 25 MG CAPSULE PO PRN (00:32)
[2020-11-27] MEDS ORDERED: ACETAMINOPHEN 325 MG TABLET (FP) PO PRN ×4 (00:32→00:35)
[2020-11-27] MEDS ORDERED: BISMUTH SUBSALICYLATE 524 MG/30 ML PO PRN ×2 (00:32→00:35)
[2020-11-27] MEDS ORDERED: IBUPROFEN 400 MG TABLET (FP) PO PRN ×2 (00:32→00:35)
[2020-11-27] MEDS ORDERED: hydrOXYzine PAMOATE 25 MG CAPSULE (FP) PO PRN (00:33)
[2020-11-27] MEDS ORDERED: METHOCARBAMOL 500 MG TABLET PO PRN (00:35)
[2020-11-27] MEDS: chlordiazePOXIDE HCL 25 MG CAPSULE PO SCH ×4 (04:07→22:42)
[2020-11-27] MEDS ORDERED: hydrOXYzine PAMOATE 25 MG CAPSULE (FP) PO SCH (06:00)
[2020-11-27] MEDS ORDERED: MELATONIN 5 MG TABLETS PO PRN (09:45)
[2020-11-27] MEDS ORDERED: PRENATAL VITAMINS W/ FOLIC ACID TABLET (FP) PO SCH (10:00)
[2020-11-27] MEDS: PRENATAL VITAMINS W/ FOLIC ACID TABLET (FP) PO SCH (10:46)
[2020-11-27] MEDS: CITALOPRAM HYDROBROMIDE 20 MG TABLET PO SCH (10:48)
[2020-11-27] MEDS: BENZTROPINE MESYLATE 1 MG TABLET PO SCH ×2 (10:48→22:46)
[2020-11-27] MEDS: TOPIRAMATE 100 MG TABLET PO SCH (12:03)
[2020-11-27 12:54] LABS: HEMATOCRIT 42.3 % (35.4-49); HEMOGLOBIN 14.4 GM/dL (11.7-16.9); MCH 33.4 pg (25.7-33.7); MCHC 34.1 g/dl (32.0-35.9); MEAN CELL VOLUME 97.7 fl (80-96); MEAN PLT VOLUME 7.7 fl (7.5-11.1); PLATELET COUNT 191 K/MM3 (134-434); RBC 4.33 M/mm3 (4.00-5.60); WHITE BLOOD COUNT 3.8 K/mm3 (4.0-10.0)
[2020-11-27 13:14] LABS: ALBUMIN 3.4 g/dl (3.4-5.0); BLOOD UREA NITROGEN 22.9 mg/dL (7-18)
[2020-11-27 13:15] LABS: BILIRUBIN,TOTAL 0.3 mg/dL (0.2-1); CALCIUM 10.6 mg/dL (8.5-10.1)
[2020-11-27 13:17] LABS: CREATININE 1.1 mg/dL (0.55-1.3)
[2020-11-27] MEDS: METHOCARBAMOL 500 MG TABLET PO PRN (19:05)
[2020-11-27] MEDS ORDERED: MELATONIN 5 MG TABLETS PO SCH ×2 (22:00)
[2020-11-27] MEDS ORDERED: THIAMINE HCL 100 MG TABLET (FP) PO SCH (22:00)
[2020-11-27] MEDS: THIAMINE HCL 100 MG TABLET (FP) PO SCH (22:43)
[2020-11-28] MEDS: OLANZapine 7.5 MG TABLET PO SCH ×2 (00:18→22:37)
[2020-11-28] MEDS: TOPIRAMATE 100 MG TABLET PO SCH ×3 (00:18→22:37)
[2020-11-28] MEDS: chlordiazePOXIDE HCL 25 MG CAPSULE PO SCH ×4 (05:25→22:39)
[2020-11-28 10:05] LABS: INR 0.88 (0.83-1.09); PROTHROMBIN TIME (PATIENT) 10.7 SEC (9.7-13.0)
[2020-11-28 10:11] LABS: BLOOD UREA NITROGEN 20.8 mg/dL (7-18); CALCIUM 10.1 mg/dL (8.5-10.1)
[2020-11-28 10:15] LABS: CREATININE 1.1 mg/dL (0.55-1.3)
[2020-11-28 10:16] LABS: BILIRUBIN,TOTAL 0.5 mg/dL (0.2-1); TOT PROT 6.2 g/dl (6.4-8.2)
[2020-11-28] MEDS: BENZTROPINE MESYLATE 1 MG TABLET PO SCH ×2 (10:45→22:38)
[2020-11-28] MEDS: CITALOPRAM HYDROBROMIDE 20 MG TABLET PO SCH (10:47)
[2020-11-28] MEDS: PRENATAL VITAMINS W/ FOLIC ACID TABLET (FP) PO SCH (10:47)
[2020-11-28] MEDS: THIAMINE HCL 100 MG TABLET (FP) PO SCH (22:37)
[2020-11-29] MEDS ORDERED: chlordiazePOXIDE HCL 10 MG CAPSULE PO PRN
[2020-11-29] MEDS: chlordiazePOXIDE HCL 10 MG CAPSULE PO SCH ×4 (05:45→23:02)
[2020-11-29] MEDS ORDERED: COVID-19 VAC,AD26(JANSSEN)/PF 0.5 ML IM ONE (09:00)
[2020-11-29] MEDS: CITALOPRAM HYDROBROMIDE 20 MG TABLET PO SCH (10:33)
[2020-11-29] MEDS: BENZTROPINE MESYLATE 1 MG TABLET PO SCH ×2 (10:33→23:01)
[2020-11-29] MEDS: PRENATAL VITAMINS W/ FOLIC ACID TABLET (FP) PO SCH (10:33)
[2020-11-29] MEDS: METHOCARBAMOL 500 MG TABLET PO PRN (10:34)
[2020-11-29] MEDS: TOPIRAMATE 100 MG TABLET PO SCH ×2 (11:15→23:02)
[2020-11-29] MEDS: OLANZapine 7.5 MG TABLET PO SCH (23:02)
[2020-11-29] MEDS: THIAMINE HCL 100 MG TABLET (FP) PO SCH (23:02)
[2020-11-30] MEDS: chlordiazePOXIDE HCL 10 MG CAPSULE PO SCH ×2 (06:47→17:34)
[2020-11-30] MEDS: PRENATAL VITAMINS W/ FOLIC ACID TABLET (FP) PO SCH (10:43)
[2020-11-30] MEDS: CITALOPRAM HYDROBROMIDE 20 MG TABLET PO SCH (10:43)
[2020-11-30] MEDS: TOPIRAMATE 100 MG TABLET PO SCH (10:43)
[2020-11-30] MEDS: BENZTROPINE MESYLATE 1 MG TABLET PO SCH (10:43)
[2020-11-30] MEDS: THIAMINE HCL 100 MG TABLET (FP) PO SCH (23:53)
[2020-12-01] MEDS ORDERED: chlordiazePOXIDE HCL 10 MG CAPSULE PO ONE (05:00)
[2020-12-01 09:10] VITALS: BP 113/62; PULSE 93; TEMP 97.5
[2020-12-01] MEDS: PRENATAL VITAMINS W/ FOLIC ACID TABLET (FP) PO SCH (11:29)
== END 2020-12-01 11:06 | disposition home or self-care (01) | DRG 774 ==
LOC: YASAS 20:17 → Y6N 11-27 02:13
PROVIDERS: ADMIT Allergy & Immunology; ATTEND Allergy & Immunology
PROC: HZ2ZZZZ Detoxification Services for Substance Abuse Treatment (ICD-10-PCS; principal; 2020-11-27)
DX: F10.230 Alcohol dependence with withdrawal, uncomplicated (principal); F14.20 Cocaine dependence, uncomplicated; F17.213 Nicotine dependence, cigarettes, with withdrawal; F25.9 Schizoaffective disorder, unspecified; F31.9 Bipolar disorder, unspecified; F19.282 Other psychoactive substance dependence with psychoactive substance-induced sleep disorder; F19.24 Other psychoactive substance dependence with psychoactive substance-induced mood disorder; Z21 Asymptomatic human immunodeficiency virus [HIV] infection status; G47.00 Insomnia, unspecified; G40.89 Other seizures; Z88.0 Allergy status to penicillin
CPT/HCPCS: 0031A; 36415; 80053; 82947; 85027; 85610; 86780; 91303; 93005; 93010; C9803; U0003; U0005

== ENCOUNTER 2020-12-17 13:26 | Inpatient (IN) | payer OTHER ==
[2020-12-17 15:06] VITALS: BMI 26.9
[2020-12-17] MEDS ORDERED: MAG HYDROX/AL HYDROX/SIMETH 30 ML UNIT-DOSE CUP PO PRN (15:30)
[2020-12-17] MEDS ORDERED: BISMUTH SUBSALICYLATE 524 MG/30 ML PO PRN (15:30)
[2020-12-17] MEDS ORDERED: ONDANSETRON *ODT* 4 MG TABLET SL PRN (15:30)
[2020-12-17] MEDS ORDERED: IBUPROFEN 400 MG TABLET (FP) PO PRN (15:30)
[2020-12-17] MEDS ORDERED: NICOTINE POLACRILEX 2 MG GUM BUC PRN (15:30)
[2020-12-17] MEDS ORDERED: METHOCARBAMOL 500 MG TABLET PO PRN (15:30)
[2020-12-17] MEDS ORDERED: MENTHOL/PHENOL 1 EACH UD MM PRN (15:30)
[2020-12-17] MEDS ORDERED: MAGNESIUM CITRATE 300 ML BOTTLE PO PRN (15:30)
[2020-12-17] MEDS ORDERED: MAGNESIUM HYDROX 2400MG/30ML ORAL SUSPENSION 30 ML CUP PO PRN (15:30)
[2020-12-17] MEDS ORDERED: diazePAM 5 MG TABLET PO PRN (15:30)
[2020-12-17] MEDS ORDERED: ACETAMINOPHEN 325 MG TABLET (FP) PO PRN ×2 (15:30)
[2020-12-17] MEDS: diazePAM 5 MG TABLET PO SCH ×2 (18:33→22:14)
[2020-12-17] MEDS: hydrOXYzine PAMOATE 25 MG CAPSULE (FP) PO SCH ×2 (18:33→22:15)
[2020-12-17] MEDS: MELATONIN 5 MG TABLETS PO SCH (22:14)
[2020-12-17] MEDS: THIAMINE HCL 100 MG TABLET (FP) PO SCH (22:15)
[2020-12-18] MEDS: hydrOXYzine PAMOATE 25 MG CAPSULE (FP) PO SCH ×2 (05:40→10:25)
[2020-12-18] MEDS: diazePAM 5 MG TABLET PO SCH ×4 (05:40→22:29)
[2020-12-18] MEDS: PRENATAL VITAMINS W/ FOLIC ACID TABLET (FP) PO SCH (10:25)
[2020-12-18 11:07] LABS: HEMATOCRIT 40.9 % (35.4-49); HEMOGLOBIN 13.8 GM/dL (11.7-16.9); MCH 32.8 pg (25.7-33.7); MCHC 33.7 g/dl (32.0-35.9); MEAN CELL VOLUME 97.2 fl (80-96); MEAN PLT VOLUME 7.2 fl (7.5-11.1); PLATELET COUNT 198 K/MM3 (134-434); RBC 4.21 M/mm3 (4.00-5.60); RDW 13.7 % (11.9-15.9); WHITE BLOOD COUNT 3.4 K/mm3 (4.0-10.0)
[2020-12-18 11:14] LABS: BILIRUBIN,TOTAL 0.3 mg/dL (0.2-1); TOT PROT 6.4 g/dl (6.4-8.2)
[2020-12-18 11:15] LABS: BLOOD UREA NITROGEN 15.1 mg/dL (7-18)
[2020-12-18 11:17] LABS: CALCIUM 10.5 mg/dL (8.5-10.1)
[2020-12-18] MEDS: hydrOXYzine PAMOATE 25 MG CAPSULE (FP) PO PRN ×2 (17:50→22:29)
[2020-12-18] MEDS ORDERED: MASKS NR ONE (20:39)
[2020-12-18] MEDS: THIAMINE HCL 100 MG TABLET (FP) PO SCH (22:29)
[2020-12-18] MEDS: MELATONIN 5 MG TABLETS PO SCH (22:29)
[2020-12-19] MEDS: diazePAM 5 MG TABLET PO SCH ×3 (05:32→22:10)
[2020-12-19] MEDS: PRENATAL VITAMINS W/ FOLIC ACID TABLET (FP) PO SCH (10:00)
[2020-12-19] MEDS: MELATONIN 5 MG TABLETS PO SCH (22:10)
[2020-12-19] MEDS: THIAMINE HCL 100 MG TABLET (FP) PO SCH (22:10)
[2020-12-19] MEDS: hydrOXYzine PAMOATE 25 MG CAPSULE (FP) PO PRN (22:13)
[2020-12-20] MEDS: diazePAM 5 MG TABLET PO SCH ×2 (05:46→17:22)
[2020-12-20] MEDS: PRENATAL VITAMINS W/ FOLIC ACID TABLET (FP) PO SCH (10:12)
[2020-12-20 10:23] LABS: HEMOGLOBIN 13.7 GM/dL (11.7-16.9); MCH 32.8 pg (25.7-33.7); MCHC 34.3 g/dl (32.0-35.9); MEAN CELL VOLUME 95.6 fl (80-96); MEAN PLT VOLUME 7.3 fl (7.5-11.1); PLATELET COUNT 189 K/MM3 (134-434); RBC 4.18 M/mm3 (4.00-5.60); RDW 13.7 % (11.9-15.9); WHITE BLOOD COUNT 3.8 K/mm3 (4.0-10.0)
[2020-12-20 10:36] LABS: ALBUMIN 2.8 g/dl (3.4-5.0); BLOOD UREA NITROGEN 12.6 mg/dL (7-18); CALCIUM 10.4 mg/dL (8.5-10.1)
[2020-12-20 10:41] LABS: BILIRUBIN,TOTAL 0.3 mg/dL (0.2-1); TOT PROT 6.1 g/dl (6.4-8.2)
[2020-12-20 17:18] VITALS: BP 117/79; PULSE 60; TEMP 97.1
[2020-12-21] MEDS ORDERED: diazePAM 5 MG TABLET PO ONE (06:00)
== END 2020-12-20 20:30 | disposition other institution (70) | DRG 774 ==
LOC: YASAS 13:26 → Y3N 17:14
PROVIDERS: ADMIT Allergy & Immunology; ATTEND Allergy & Immunology
PROC: HZ2ZZZZ Detoxification Services for Substance Abuse Treatment (ICD-10-PCS; principal; 2020-12-17)
DX: F10.230 Alcohol dependence with withdrawal, uncomplicated (principal); F14.20 Cocaine dependence, uncomplicated; F17.210 Nicotine dependence, cigarettes, uncomplicated; F19.24 Other psychoactive substance dependence with psychoactive substance-induced mood disorder; F20.9 Schizophrenia, unspecified; F31.9 Bipolar disorder, unspecified; Z21 Asymptomatic human immunodeficiency virus [HIV] infection status; D72.829 Elevated white blood cell count, unspecified; K21.9 Gastro-esophageal reflux disease without esophagitis; R79.89 Other specified abnormal findings of blood chemistry; R63.4 Abnormal weight loss; Z68.27 Body mass index [BMI] 27.0-27.9, adult; Z88.0 Allergy status to penicillin; Z59.0 Homelessness
CPT/HCPCS: 36415; 80053; 85027; 86780; C9803; U0003; U0005

== ENCOUNTER 2020-12-20 19:57 | Inpatient (IN) | payer OTHER ==
[2020-12-21] MEDS ORDERED: P-EPHED 60MG/TRIPROLIDI 2.5MG TABLET PO PRN (01:03)
[2020-12-21] MEDS ORDERED: NICOTINE POLACRILEX 2 MG GUM BUC PRN (01:03)
[2020-12-21] MEDS ORDERED: MAG HYDROX/AL HYDROX/SIMETH 30 ML UNIT-DOSE CUP PO PRN (01:03)
[2020-12-21] MEDS ORDERED: MAGNESIUM HYDROX 2400MG/30ML ORAL SUSPENSION 30 ML CUP PO PRN (01:03)
[2020-12-21] MEDS ORDERED: ACETAMINOPHEN 325 MG TABLET (FP) PO PRN (01:03)
[2020-12-21] MEDS ORDERED: LOPERAMIDE HCL 2 MG CAPSULE PO PRN (01:03)
[2020-12-21] MEDS ORDERED: guaiFENesin 200 MG/10 ML 10 ML UNIT-DOSE CUPS PO PRN (01:03)
[2020-12-21] MEDS ORDERED: MAGNESIUM CITRATE 300 ML BOTTLE PO PRN (01:03)
[2020-12-21] MEDS: PRENATAL VITAMINS W/ FOLIC ACID TABLET (FP) PO SCH (10:23)
[2020-12-21] MEDS: IBUPROFEN 400 MG TABLET (FP) PO PRN (10:24)
[2020-12-21] MEDS: THIAMINE HCL 100 MG TABLET (FP) PO SCH (21:44)
[2020-12-21] MEDS: MELATONIN 5 MG TABLETS PO SCH (21:44)
[2020-12-22] MEDS: PRENATAL VITAMINS W/ FOLIC ACID TABLET (FP) PO SCH (10:54)
[2020-12-22] MEDS: MELATONIN 5 MG TABLETS PO SCH (21:41)
[2020-12-22] MEDS: THIAMINE HCL 100 MG TABLET (FP) PO SCH (21:41)
[2020-12-23] MEDS: PRENATAL VITAMINS W/ FOLIC ACID TABLET (FP) PO SCH (10:20)
[2020-12-23] MEDS: IBUPROFEN 400 MG TABLET (FP) PO PRN (10:20)
[2020-12-23] MEDS: MELATONIN 5 MG TABLETS PO SCH (21:43)
[2020-12-23] MEDS: THIAMINE HCL 100 MG TABLET (FP) PO SCH (21:43)
[2020-12-24] MEDS: CITALOPRAM HYDROBROMIDE 20 MG TABLET PO SCH (10:16)
[2020-12-24] MEDS: BENZTROPINE MESYLATE 1 MG TABLET PO SCH ×2 (10:16→21:41)
[2020-12-24] MEDS: PRENATAL VITAMINS W/ FOLIC ACID TABLET (FP) PO SCH (10:16)
[2020-12-24] MEDS: TOPIRAMATE 100 MG TABLET PO SCH ×2 (10:16→21:33)
[2020-12-24] MEDS: THIAMINE HCL 100 MG TABLET (FP) PO SCH (21:33)
[2020-12-24] MEDS: MELATONIN 5 MG TABLETS PO PRN (21:33)
[2020-12-24] MEDS: OLANZapine 10 MG TABLET PO SCH (21:34)
[2020-12-25] MEDS: PRENATAL VITAMINS W/ FOLIC ACID TABLET (FP) PO SCH (10:15)
[2020-12-25] MEDS: CITALOPRAM HYDROBROMIDE 20 MG TABLET PO SCH (10:16)
[2020-12-25] MEDS: BENZTROPINE MESYLATE 1 MG TABLET PO SCH ×2 (10:16→21:43)
[2020-12-25] MEDS: TOPIRAMATE 100 MG TABLET PO SCH ×2 (10:16→21:43)
[2020-12-25] MEDS: MELATONIN 5 MG TABLETS PO PRN (21:43)
[2020-12-25] MEDS: OLANZapine 10 MG TABLET PO SCH (21:43)
[2020-12-25] MEDS: THIAMINE HCL 100 MG TABLET (FP) PO SCH (21:43)
[2020-12-26] MEDS ORDERED: PT OWN MED DRAWER 7, Y5N ONE (09:02)
[2020-12-26] MEDS: PRENATAL VITAMINS W/ FOLIC ACID TABLET (FP) PO SCH (10:31)
[2020-12-26] MEDS: CITALOPRAM HYDROBROMIDE 20 MG TABLET PO SCH (10:31)
[2020-12-26] MEDS: BENZTROPINE MESYLATE 1 MG TABLET PO SCH ×2 (10:31→21:44)
[2020-12-26] MEDS: TOPIRAMATE 100 MG TABLET PO SCH ×2 (10:31→21:44)
[2020-12-26] MEDS: MELATONIN 5 MG TABLETS PO PRN (21:44)
[2020-12-26] MEDS: OLANZapine 10 MG TABLET PO SCH (21:44)
[2020-12-26] MEDS: THIAMINE HCL 100 MG TABLET (FP) PO SCH (21:44)
[2020-12-27] MEDS: BENZTROPINE MESYLATE 1 MG TABLET PO SCH ×2 (10:15→21:23)
[2020-12-27] MEDS: CITALOPRAM HYDROBROMIDE 20 MG TABLET PO SCH (10:15)
[2020-12-27] MEDS: TOPIRAMATE 100 MG TABLET PO SCH ×2 (10:15→21:23)
[2020-12-27] MEDS: PRENATAL VITAMINS W/ FOLIC ACID TABLET (FP) PO SCH (10:15)
[2020-12-27] MEDS: OLANZapine 10 MG TABLET PO SCH (21:23)
[2020-12-27] MEDS: THIAMINE HCL 100 MG TABLET (FP) PO SCH (21:23)
[2020-12-27] MEDS: MELATONIN 5 MG TABLETS PO PRN (21:23)
[2020-12-28] MEDS: PRENATAL VITAMINS W/ FOLIC ACID TABLET (FP) PO SCH (09:53)
[2020-12-28] MEDS: TOPIRAMATE 100 MG TABLET PO SCH ×2 (09:53→21:22)
[2020-12-28] MEDS: CITALOPRAM HYDROBROMIDE 20 MG TABLET PO SCH (09:53)
[2020-12-28] MEDS: BENZTROPINE MESYLATE 1 MG TABLET PO SCH ×2 (09:54→21:22)
[2020-12-28] MEDS: THIAMINE HCL 100 MG TABLET (FP) PO SCH (21:22)
[2020-12-28] MEDS: MELATONIN 5 MG TABLETS PO PRN (21:25)
[2020-12-28] MEDS ORDERED: OLANZapine 10 MG TABLET PO ONE (22:41)
[2020-12-28] MEDS: OLANZapine 10 MG TABLET PO SCH (23:04)
[2020-12-29] MEDS: BENZTROPINE MESYLATE 1 MG TABLET PO SCH ×2 (09:55→21:47)
[2020-12-29] MEDS: CITALOPRAM HYDROBROMIDE 20 MG TABLET PO SCH (09:55)
[2020-12-29] MEDS: TOPIRAMATE 100 MG TABLET PO SCH ×2 (09:55→21:48)
[2020-12-29] MEDS: PRENATAL VITAMINS W/ FOLIC ACID TABLET (FP) PO SCH (09:56)
[2020-12-29] MEDS: IBUPROFEN 400 MG TABLET (FP) PO PRN (09:56)
[2020-12-29] MEDS ORDERED: PT OWN MED DRAWER 7, Y5N ONE (20:07)
[2020-12-29] MEDS: OLANZapine 10 MG TABLET PO SCH (21:47)
[2020-12-29] MEDS: THIAMINE HCL 100 MG TABLET (FP) PO SCH (21:47)
[2020-12-29] MEDS ORDERED: OLANZapine 10 MG TABLET PO ONE (22:52)
[2020-12-30] MEDS: PRENATAL VITAMINS W/ FOLIC ACID TABLET (FP) PO SCH (09:53)
[2020-12-30] MEDS: TOPIRAMATE 100 MG TABLET PO SCH ×2 (09:53→21:11)
[2020-12-30] MEDS: CITALOPRAM HYDROBROMIDE 20 MG TABLET PO SCH (09:54)
[2020-12-30] MEDS: BENZTROPINE MESYLATE 1 MG TABLET PO SCH ×2 (09:54→21:10)
[2020-12-30] MEDS: TOLNAFTATE 1% CREAM 15 GM TUBE TP SCH ×2 (11:28→21:42)
[2020-12-30] MEDS: COLLOIDAL OATMEAL 1 BAR EACH TP PRN (11:28)
[2020-12-30] MEDS: MINERAL OIL/PETROLAT/WATER TOPICAL CREAM 113 GM JAR TP SCH (11:55)
[2020-12-30] MEDS: THIAMINE HCL 100 MG TABLET (FP) PO SCH (21:11)
[2020-12-30] MEDS: MELATONIN 5 MG TABLETS PO PRN (21:12)
[2020-12-30] MEDS: OLANZapine 10 MG TABLET PO SCH (21:12)
[2020-12-31] MEDS: PRENATAL VITAMINS W/ FOLIC ACID TABLET (FP) PO SCH (10:24)
[2020-12-31] MEDS: TOPIRAMATE 100 MG TABLET PO SCH ×2 (10:24→21:45)
[2020-12-31] MEDS: CITALOPRAM HYDROBROMIDE 20 MG TABLET PO SCH (10:24)
[2020-12-31] MEDS: MINERAL OIL/PETROLAT/WATER TOPICAL CREAM 113 GM JAR TP SCH (10:25)
[2020-12-31] MEDS: BENZTROPINE MESYLATE 1 MG TABLET PO SCH ×2 (10:25→21:44)
[2020-12-31] MEDS: TOLNAFTATE 1% CREAM 15 GM TUBE TP SCH ×2 (10:25→21:48)
[2020-12-31] MEDS: MELATONIN 5 MG TABLETS PO PRN (21:45)
[2020-12-31] MEDS: OLANZapine 10 MG TABLET PO SCH (21:45)
[2020-12-31] MEDS: THIAMINE HCL 100 MG TABLET (FP) PO SCH (21:48)
[2020-12-31] MEDS: OLANZapine 5 MG TABLET PO SCH (22:15)
[2021-01-01] MEDS: MENTHOL/PHENOL 1 EACH UD MM PRN ×3 (07:56→22:34)
[2021-01-01] MEDS ORDERED: PT OWN MED DRAWER 7, Y5N ONE (08:32)
[2021-01-01] MEDS: BENZTROPINE MESYLATE 1 MG TABLET PO SCH ×2 (09:54→21:33)
[2021-01-01] MEDS: TOPIRAMATE 100 MG TABLET PO SCH ×2 (09:54→21:33)
[2021-01-01] MEDS: CITALOPRAM HYDROBROMIDE 20 MG TABLET PO SCH (09:54)
[2021-01-01] MEDS: PRENATAL VITAMINS W/ FOLIC ACID TABLET (FP) PO SCH (09:54)
[2021-01-01] MEDS: MINERAL OIL/PETROLAT/WATER TOPICAL CREAM 113 GM JAR TP SCH (09:56)
[2021-01-01] MEDS: TOLNAFTATE 1% CREAM 15 GM TUBE TP SCH ×2 (09:56→21:32)
[2021-01-01] MEDS: OLANZapine 5 MG TABLET PO SCH (21:33)
[2021-01-01] MEDS: THIAMINE HCL 100 MG TABLET (FP) PO SCH (21:33)
[2021-01-01] MEDS: MELATONIN 5 MG TABLETS PO PRN (21:34)
[2021-01-02] MEDS: MENTHOL/PHENOL 1 EACH UD MM PRN (06:32)
[2021-01-02] MEDS: PRENATAL VITAMINS W/ FOLIC ACID TABLET (FP) PO SCH (10:05)
[2021-01-02] MEDS: TOPIRAMATE 100 MG TABLET PO SCH ×2 (10:06→21:33)
[2021-01-02] MEDS: CITALOPRAM HYDROBROMIDE 20 MG TABLET PO SCH (10:06)
[2021-01-02] MEDS: TOLNAFTATE 1% CREAM 15 GM TUBE TP SCH ×2 (10:07→21:34)
[2021-01-02] MEDS: MINERAL OIL/PETROLAT/WATER TOPICAL CREAM 113 GM JAR TP SCH (10:07)
[2021-01-02] MEDS: BENZTROPINE MESYLATE 1 MG TABLET PO SCH ×2 (10:08→21:33)
[2021-01-02] MEDS: MELATONIN 5 MG TABLETS PO PRN (21:33)
[2021-01-02] MEDS: OLANZapine 5 MG TABLET PO SCH (21:33)
[2021-01-02] MEDS: THIAMINE HCL 100 MG TABLET (FP) PO SCH (21:33)
[2021-01-03] MEDS: MENTHOL/PHENOL 1 EACH UD MM PRN ×2 (06:33→13:13)
[2021-01-03] MEDS: PRENATAL VITAMINS W/ FOLIC ACID TABLET (FP) PO SCH (10:10)
[2021-01-03] MEDS: CITALOPRAM HYDROBROMIDE 20 MG TABLET PO SCH (10:11)
[2021-01-03] MEDS: TOLNAFTATE 1% CREAM 15 GM TUBE TP SCH ×2 (10:11→21:21)
[2021-01-03] MEDS: TOPIRAMATE 100 MG TABLET PO SCH ×2 (10:11→21:18)
[2021-01-03] MEDS: BENZTROPINE MESYLATE 1 MG TABLET PO SCH ×2 (10:12→21:18)
[2021-01-03] MEDS: MINERAL OIL/PETROLAT/WATER TOPICAL CREAM 113 GM JAR TP SCH (10:12)
[2021-01-03] MEDS: THIAMINE HCL 100 MG TABLET (FP) PO SCH (21:18)
[2021-01-03] MEDS: OLANZapine 5 MG TABLET PO SCH (21:18)
[2021-01-03] MEDS: MELATONIN 5 MG TABLETS PO PRN (21:20)
[2021-01-04] MEDS: CITALOPRAM HYDROBROMIDE 20 MG TABLET PO SCH (10:03)
[2021-01-04] MEDS: TOPIRAMATE 100 MG TABLET PO SCH ×2 (10:03→21:28)
[2021-01-04] MEDS: PRENATAL VITAMINS W/ FOLIC ACID TABLET (FP) PO SCH (10:04)
[2021-01-04] MEDS: BENZTROPINE MESYLATE 1 MG TABLET PO SCH ×2 (10:05→21:28)
[2021-01-04] MEDS: MINERAL OIL/PETROLAT/WATER TOPICAL CREAM 113 GM JAR TP SCH (10:06)
[2021-01-04] MEDS: TOLNAFTATE 1% CREAM 15 GM TUBE TP SCH ×2 (10:06→21:29)
[2021-01-04] MEDS: MENTHOL/PHENOL 1 EACH UD MM PRN (14:36)
[2021-01-04] MEDS: OLANZapine 5 MG TABLET PO SCH (21:28)
[2021-01-04] MEDS: MELATONIN 5 MG TABLETS PO PRN (21:28)
[2021-01-04] MEDS: THIAMINE HCL 100 MG TABLET (FP) PO SCH (21:28)
[2021-01-05] MEDS: PRENATAL VITAMINS W/ FOLIC ACID TABLET (FP) PO SCH (10:04)
[2021-01-05] MEDS: BENZTROPINE MESYLATE 1 MG TABLET PO SCH ×2 (10:05→21:33)
[2021-01-05] MEDS: TOLNAFTATE 1% CREAM 15 GM TUBE TP SCH ×2 (10:05→21:34)
[2021-01-05] MEDS: CITALOPRAM HYDROBROMIDE 20 MG TABLET PO SCH (10:05)
[2021-01-05] MEDS: TOPIRAMATE 100 MG TABLET PO SCH ×2 (10:05→21:33)
[2021-01-05] MEDS: MINERAL OIL/PETROLAT/WATER TOPICAL CREAM 113 GM JAR TP SCH (10:06)
[2021-01-05] MEDS ORDERED: PT OWN MED DRAWER 7, Y5N ONE (10:45)
[2021-01-05] MEDS: MELATONIN 5 MG TABLETS PO PRN (21:33)
[2021-01-05] MEDS: OLANZapine 5 MG TABLET PO SCH (21:33)
[2021-01-05] MEDS: THIAMINE HCL 100 MG TABLET (FP) PO SCH (21:33)
[2021-01-06] MEDS ORDERED: PT OWN MED DRAWER 7, Y5N ONE (08:38)
[2021-01-06] MEDS: PRENATAL VITAMINS W/ FOLIC ACID TABLET (FP) PO SCH (10:07)
[2021-01-06] MEDS: TOPIRAMATE 100 MG TABLET PO SCH ×2 (10:08→21:43)
[2021-01-06] MEDS: CITALOPRAM HYDROBROMIDE 20 MG TABLET PO SCH (10:08)
[2021-01-06] MEDS: BENZTROPINE MESYLATE 1 MG TABLET PO SCH ×2 (10:09→21:43)
[2021-01-06] MEDS: MINERAL OIL/PETROLAT/WATER TOPICAL CREAM 113 GM JAR TP SCH (10:09)
[2021-01-06] MEDS: TOLNAFTATE 1% CREAM 15 GM TUBE TP SCH ×2 (10:10→21:43)
[2021-01-06] MEDS: THIAMINE HCL 100 MG TABLET (FP) PO SCH (21:43)
[2021-01-06] MEDS: OLANZapine 5 MG TABLET PO SCH (21:43)
[2021-01-06] MEDS: MELATONIN 5 MG TABLETS PO PRN (21:44)
[2021-01-06] MEDS: FAMOTIDINE 20 MG TABLET PO SCH (21:46)
[2021-01-06] MEDS: IBUPROFEN 400 MG TABLET (FP) PO PRN (21:46)
[2021-01-07] MEDS: FAMOTIDINE 20 MG TABLET PO SCH ×2 (09:51→21:40)
[2021-01-07] MEDS: TOPIRAMATE 100 MG TABLET PO SCH ×2 (09:51→21:40)
[2021-01-07] MEDS: CITALOPRAM HYDROBROMIDE 20 MG TABLET PO SCH (09:51)
[2021-01-07] MEDS: PRENATAL VITAMINS W/ FOLIC ACID TABLET (FP) PO SCH (09:52)
[2021-01-07] MEDS: BENZTROPINE MESYLATE 1 MG TABLET PO SCH ×2 (09:53→21:40)
[2021-01-07] MEDS: MINERAL OIL/PETROLAT/WATER TOPICAL CREAM 113 GM JAR TP SCH (09:53)
[2021-01-07] MEDS: TOLNAFTATE 1% CREAM 15 GM TUBE TP SCH ×2 (09:53→21:41)
[2021-01-07] MEDS: OLANZapine 5 MG TABLET PO SCH (21:40)
[2021-01-07] MEDS: MELATONIN 5 MG TABLETS PO PRN (21:40)
[2021-01-07] MEDS: THIAMINE HCL 100 MG TABLET (FP) PO SCH (21:40)
[2021-01-08] MEDS: TOPIRAMATE 100 MG TABLET PO SCH ×2 (09:55→21:32)
[2021-01-08] MEDS: BENZTROPINE MESYLATE 1 MG TABLET PO SCH ×2 (09:55→21:33)
[2021-01-08] MEDS: FAMOTIDINE 20 MG TABLET PO SCH ×2 (09:55→21:33)
[2021-01-08] MEDS: PRENATAL VITAMINS W/ FOLIC ACID TABLET (FP) PO SCH (09:55)
[2021-01-08] MEDS: MINERAL OIL/PETROLAT/WATER TOPICAL CREAM 113 GM JAR TP SCH (09:56)
[2021-01-08] MEDS: CITALOPRAM HYDROBROMIDE 20 MG TABLET PO SCH (09:56)
[2021-01-08] MEDS: TOLNAFTATE 1% CREAM 15 GM TUBE TP SCH ×2 (09:56→21:34)
[2021-01-08] MEDS: OLANZapine 5 MG TABLET PO SCH (21:32)
[2021-01-08] MEDS: MELATONIN 5 MG TABLETS PO PRN (21:33)
[2021-01-08] MEDS: THIAMINE HCL 100 MG TABLET (FP) PO SCH (21:34)
[2021-01-09] MEDS ORDERED: PT OWN MED DRAWER 7, Y5N ONE (09:20)
[2021-01-09] MEDS: MINERAL OIL/PETROLAT/WATER TOPICAL CREAM 113 GM JAR TP SCH (09:56)
[2021-01-09] MEDS: CITALOPRAM HYDROBROMIDE 20 MG TABLET PO SCH (09:57)
[2021-01-09] MEDS: TOLNAFTATE 1% CREAM 15 GM TUBE TP SCH ×2 (09:57→21:42)
[2021-01-09] MEDS: BENZTROPINE MESYLATE 1 MG TABLET PO SCH ×2 (09:58→21:42)
[2021-01-09] MEDS: FAMOTIDINE 20 MG TABLET PO SCH ×2 (09:58→21:41)
[2021-01-09] MEDS: TOPIRAMATE 100 MG TABLET PO SCH ×2 (09:58→21:41)
[2021-01-09] MEDS: PRENATAL VITAMINS W/ FOLIC ACID TABLET (FP) PO SCH (09:58)
[2021-01-09] MEDS: OLANZapine 5 MG TABLET PO SCH (21:41)
[2021-01-09] MEDS: THIAMINE HCL 100 MG TABLET (FP) PO SCH (21:41)
[2021-01-09] MEDS: MELATONIN 5 MG TABLETS PO PRN (21:41)
[2021-01-10] MEDS: PRENATAL VITAMINS W/ FOLIC ACID TABLET (FP) PO SCH (09:41)
[2021-01-10] MEDS: BENZTROPINE MESYLATE 1 MG TABLET PO SCH ×2 (09:41→21:41)
[2021-01-10] MEDS: TOPIRAMATE 100 MG TABLET PO SCH ×2 (09:41→21:41)
[2021-01-10] MEDS: FAMOTIDINE 20 MG TABLET PO SCH ×2 (09:41→21:40)
[2021-01-10] MEDS: CITALOPRAM HYDROBROMIDE 20 MG TABLET PO SCH (09:41)
[2021-01-10] MEDS: MINERAL OIL/PETROLAT/WATER TOPICAL CREAM 113 GM JAR TP SCH (09:42)
[2021-01-10] MEDS: TOLNAFTATE 1% CREAM 15 GM TUBE TP SCH ×2 (09:42→21:41)
[2021-01-10] MEDS: IBUPROFEN 400 MG TABLET (FP) PO PRN (09:43)
[2021-01-10] MEDS: OLANZapine 5 MG TABLET PO SCH (21:40)
[2021-01-10] MEDS: MELATONIN 5 MG TABLETS PO PRN (21:41)
[2021-01-10] MEDS: THIAMINE HCL 100 MG TABLET (FP) PO SCH (21:41)
[2021-01-11] MEDS: COLLOIDAL OATMEAL 1 BAR EACH TP PRN (07:25)
[2021-01-11] MEDS: PRENATAL VITAMINS W/ FOLIC ACID TABLET (FP) PO SCH (10:05)
[2021-01-11] MEDS: CITALOPRAM HYDROBROMIDE 20 MG TABLET PO SCH (10:05)
[2021-01-11] MEDS: FAMOTIDINE 20 MG TABLET PO SCH ×2 (10:05→21:45)
[2021-01-11] MEDS: TOPIRAMATE 100 MG TABLET PO SCH ×2 (10:05→21:46)
[2021-01-11] MEDS: TOLNAFTATE 1% CREAM 15 GM TUBE TP SCH ×2 (10:06→21:46)
[2021-01-11] MEDS: MINERAL OIL/PETROLAT/WATER TOPICAL CREAM 113 GM JAR TP SCH (10:07)
[2021-01-11] MEDS: BENZTROPINE MESYLATE 1 MG TABLET PO SCH ×2 (10:07→21:44)
[2021-01-11] MEDS ORDERED: PT OWN MED DRAWER 7, Y5N ONE (10:55)
[2021-01-11] MEDS: OLANZapine 5 MG TABLET PO SCH (21:46)
[2021-01-11] MEDS: THIAMINE HCL 100 MG TABLET (FP) PO SCH (21:46)
[2021-01-12] MEDS: PRENATAL VITAMINS W/ FOLIC ACID TABLET (FP) PO SCH (10:11)
[2021-01-12] MEDS: TOPIRAMATE 100 MG TABLET PO SCH ×2 (10:12→21:19)
[2021-01-12] MEDS: TOLNAFTATE 1% CREAM 15 GM TUBE TP SCH ×2 (10:12→21:19)
[2021-01-12] MEDS: CITALOPRAM HYDROBROMIDE 20 MG TABLET PO SCH (10:12)
[2021-01-12] MEDS: BENZTROPINE MESYLATE 1 MG TABLET PO SCH ×2 (10:12→21:19)
[2021-01-12] MEDS: FAMOTIDINE 20 MG TABLET PO SCH ×2 (10:12→21:19)
[2021-01-12] MEDS: MINERAL OIL/PETROLAT/WATER TOPICAL CREAM 113 GM JAR TP SCH (10:13)
[2021-01-12] MEDS: OLANZapine 5 MG TABLET PO SCH (21:19)
[2021-01-12] MEDS: THIAMINE HCL 100 MG TABLET (FP) PO SCH (21:19)
[2021-01-12] MEDS: MELATONIN 5 MG TABLETS PO PRN (21:19)
[2021-01-13] MEDS: PRENATAL VITAMINS W/ FOLIC ACID TABLET (FP) PO SCH (10:05)
[2021-01-13] MEDS: MINERAL OIL/PETROLAT/WATER TOPICAL CREAM 113 GM JAR TP SCH (10:05)
[2021-01-13] MEDS: TOLNAFTATE 1% CREAM 15 GM TUBE TP SCH ×2 (10:05→23:34)
[2021-01-13] MEDS: BENZTROPINE MESYLATE 1 MG TABLET PO SCH ×2 (10:05→21:33)
[2021-01-13] MEDS: TOPIRAMATE 100 MG TABLET PO SCH ×2 (10:05→21:31)
[2021-01-13] MEDS: CITALOPRAM HYDROBROMIDE 20 MG TABLET PO SCH (10:05)
[2021-01-13] MEDS: FAMOTIDINE 20 MG TABLET PO SCH ×2 (10:05→21:33)
[2021-01-13] MEDS: THIAMINE HCL 100 MG TABLET (FP) PO SCH (21:31)
[2021-01-13] MEDS: MELATONIN 5 MG TABLETS PO PRN (21:33)
[2021-01-13] MEDS: OLANZapine 5 MG TABLET PO SCH (22:48)
[2021-01-14] MEDS: FAMOTIDINE 20 MG TABLET PO SCH ×2 (09:53→22:16)
[2021-01-14] MEDS: CITALOPRAM HYDROBROMIDE 20 MG TABLET PO SCH (09:53)
[2021-01-14] MEDS: BENZTROPINE MESYLATE 1 MG TABLET PO SCH ×2 (09:53→22:16)
[2021-01-14] MEDS: PRENATAL VITAMINS W/ FOLIC ACID TABLET (FP) PO SCH (09:54)
[2021-01-14] MEDS: TOLNAFTATE 1% CREAM 15 GM TUBE TP SCH ×2 (09:54→23:04)
[2021-01-14] MEDS: TOPIRAMATE 100 MG TABLET PO SCH ×2 (09:54→22:19)
[2021-01-14] MEDS: MINERAL OIL/PETROLAT/WATER TOPICAL CREAM 113 GM JAR TP SCH (09:54)
[2021-01-14] MEDS ORDERED: SELENIUM SULFIDE 2.25% 180 ML SHAMPOO TP SCH (12:00)
[2021-01-14] MEDS: SELENIUM SULFIDE 2.5% LOTION 4 OZ. TP SCH (14:13)
[2021-01-14] MEDS: MELATONIN 5 MG TABLETS PO PRN (22:16)
[2021-01-14] MEDS: OLANZapine 5 MG TABLET PO SCH (22:16)
[2021-01-14] MEDS: THIAMINE HCL 100 MG TABLET (FP) PO SCH (22:19)
[2021-01-15] MEDS: BENZTROPINE MESYLATE 1 MG TABLET PO SCH ×2 (10:29→21:38)
[2021-01-15] MEDS: CITALOPRAM HYDROBROMIDE 20 MG TABLET PO SCH (10:29)
[2021-01-15] MEDS: FAMOTIDINE 20 MG TABLET PO SCH ×2 (10:29→21:38)
[2021-01-15] MEDS: TOPIRAMATE 100 MG TABLET PO SCH ×2 (10:29→21:38)
[2021-01-15] MEDS: SELENIUM SULFIDE 2.5% LOTION 4 OZ. TP SCH (10:30)
[2021-01-15] MEDS: PRENATAL VITAMINS W/ FOLIC ACID TABLET (FP) PO SCH (10:30)
[2021-01-15] MEDS: TOLNAFTATE 1% CREAM 15 GM TUBE TP SCH ×2 (10:31→21:38)
[2021-01-15] MEDS: MINERAL OIL/PETROLAT/WATER TOPICAL CREAM 113 GM JAR TP SCH (10:32)
[2021-01-15] MEDS: OLANZapine 5 MG TABLET PO SCH (21:38)
[2021-01-15] MEDS: THIAMINE HCL 100 MG TABLET (FP) PO SCH (21:38)
[2021-01-15] MEDS: MELATONIN 5 MG TABLETS PO PRN (21:39)
[2021-01-16 06:49] VITALS: BP 135/93; PULSE 85; TEMP 97.1
[2021-01-16] MEDS: MINERAL OIL/PETROLAT/WATER TOPICAL CREAM 113 GM JAR TP SCH (09:03)
[2021-01-16] MEDS: TOPIRAMATE 100 MG TABLET PO SCH (09:03)
[2021-01-16] MEDS: CITALOPRAM HYDROBROMIDE 20 MG TABLET PO SCH (09:03)
[2021-01-16] MEDS: FAMOTIDINE 20 MG TABLET PO SCH (09:03)
[2021-01-16] MEDS: BENZTROPINE MESYLATE 1 MG TABLET PO SCH (09:03)
[2021-01-16] MEDS: SELENIUM SULFIDE 2.5% LOTION 4 OZ. TP SCH (09:04)
[2021-01-16] MEDS: TOLNAFTATE 1% CREAM 15 GM TUBE TP SCH (09:04)
[2021-01-16] MEDS: PRENATAL VITAMINS W/ FOLIC ACID TABLET (FP) PO SCH (09:05)
== END 2021-01-16 09:07 | disposition home or self-care (01) | DRG 772 ==
LOC: YASAS 19:57 → Y5N 19:58
PROVIDERS: ADMIT Allergy & Immunology; ATTEND Allergy & Immunology
PROC: HZ42ZZZ Group Counseling for Substance Abuse Treatment, Cognitive-Behavioral (ICD-10-PCS; principal; 2020-12-20)
DX: F14.20 Cocaine dependence, uncomplicated (principal); F17.210 Nicotine dependence, cigarettes, uncomplicated; Z21 Asymptomatic human immunodeficiency virus [HIV] infection status; Z88.0 Allergy status to penicillin; Z86.59 Personal history of other mental and behavioral disorders; Z62.810 Personal history of physical and sexual abuse in childhood; Z59.0 Homelessness

== ENCOUNTER 2021-06-06 11:24 | Inpatient (IN) | payer OTHER ==
[2021-06-06 12:23] VITALS: BMI 25.0
[2021-06-06] MEDS ORDERED: MENTHOL/PHENOL 1 EACH UD MM PRN (12:52)
[2021-06-06] MEDS ORDERED: ONDANSETRON *ODT* 4 MG TABLET SL PRN (12:52)
[2021-06-06] MEDS ORDERED: BISMUTH SUBSALICYLATE 524 MG/30 ML PO PRN (12:52)
[2021-06-06] MEDS ORDERED: IBUPROFEN 400 MG TABLET (FP) PO PRN (12:52)
[2021-06-06] MEDS ORDERED: NICOTINE 10 MG CARTRIDGE (INHALER) IH PRN (12:52)
[2021-06-06] MEDS ORDERED: MAGNESIUM HYDROX 2400MG/30ML ORAL SUSPENSION 30 ML CUP PO PRN (12:52)
[2021-06-06] MEDS ORDERED: METHOCARBAMOL 500 MG TABLET PO PRN (12:52)
[2021-06-06] MEDS ORDERED: diazePAM 5 MG TABLET PO PRN (12:52)
[2021-06-06] MEDS ORDERED: ACETAMINOPHEN 325 MG TABLET (FP) PO PRN ×2 (12:52)
[2021-06-06] MEDS ORDERED: cloNIDine HCL 0.1 MG TABLET PO PRN (12:52)
[2021-06-06] MEDS ORDERED: MAG HYDROX/AL HYDROX/SIMETH 30 ML UNIT-DOSE CUP PO PRN (12:52)
[2021-06-06] MEDS ORDERED: MAGNESIUM CITRATE 300 ML BOTTLE PO PRN (12:52)
[2021-06-06] MEDS ORDERED: methaDONE HCL 10 MG TABLET (FOR DETOX USE ONLY) PO ONE (13:15)
[2021-06-06] MEDS: ELVITEG/COB/EMTRI/TENOF (GENVOYA) TABLET (NF) PO SCH (15:07)
[2021-06-06] MEDS: hydrOXYzine PAMOATE 25 MG CAPSULE (FP) PO SCH ×3 (15:08→22:23)
[2021-06-06] MEDS: diazePAM 5 MG TABLET PO SCH ×2 (17:52→22:24)
[2021-06-06] MEDS ORDERED: MELATONIN 5 MG TABLETS PO SCH (22:00)
[2021-06-06] MEDS: QUEtiapine FUMARATE 100 MG TABLET (FP) PO SCH (22:22)
[2021-06-06] MEDS: THIAMINE HCL 100 MG TABLET (FP) PO SCH (22:23)
[2021-06-07] MEDS: hydrOXYzine PAMOATE 25 MG CAPSULE (FP) PO SCH ×5 (06:29→23:20)
[2021-06-07] MEDS: diazePAM 5 MG TABLET PO SCH ×4 (06:32→23:18)
[2021-06-07] MEDS: ELVITEG/COB/EMTRI/TENOF (GENVOYA) TABLET (NF) PO SCH (07:57)
[2021-06-07] MEDS ORDERED: methaDONE HCL 10 MG TABLET (FOR DETOX USE ONLY) ONE (08:50)
[2021-06-07] MEDS: PRENATAL VITAMINS W/ FOLIC ACID TABLET (FP) PO SCH (10:36)
[2021-06-07] MEDS: QUEtiapine FUMARATE 100 MG TABLET (FP) PO SCH (23:19)
[2021-06-07] MEDS: THIAMINE HCL 100 MG TABLET (FP) PO SCH (23:19)
[2021-06-08] MEDS: hydrOXYzine PAMOATE 25 MG CAPSULE (FP) PO SCH ×5 (06:07→22:29)
[2021-06-08] MEDS: diazePAM 5 MG TABLET PO SCH ×3 (06:08→22:29)
[2021-06-08] MEDS: ELVITEG/COB/EMTRI/TENOF (GENVOYA) TABLET (NF) PO SCH (07:15)
[2021-06-08] MEDS ORDERED: methaDONE HCL 10 MG TABLET (FOR DETOX USE ONLY) PO ONE (10:00)
[2021-06-08] MEDS: PRENATAL VITAMINS W/ FOLIC ACID TABLET (FP) PO SCH (10:17)
[2021-06-08 10:49] LABS: HEMATOCRIT 40.5 % (35.4-49); HEMOGLOBIN 13.7 GM/dL (11.7-16.9); MCH 33.9 pg (25.7-33.7); MCHC 33.9 g/dl (32.0-35.9); MEAN CELL VOLUME 99.9 fl (80-96); MEAN PLT VOLUME 7.2 fl (7.5-11.1); PLATELET COUNT 179 10^3/uL (134-434); RBC 4.06 M/mm3 (4.00-5.60); RDW 14.5 % (11.9-15.9); WHITE BLOOD COUNT 3.3 K/mm3 (4.0-10.0)
[2021-06-08 11:13] LABS: CALCIUM 10.4 mg/dL (8.5-10.1)
[2021-06-08 11:14] LABS: ALBUMIN 3.2 g/dl (3.4-5.0); BLOOD UREA NITROGEN 16.4 mg/dL (7-18)
[2021-06-08 11:17] LABS: BILIRUBIN,TOTAL 0.5 mg/dL (0.2-1); CREATININE 1.3 mg/dL (0.55-1.3)
[2021-06-08 11:19] LABS: TOT PROT 6.7 g/dl (6.4-8.2)
[2021-06-08] MEDS: THIAMINE HCL 100 MG TABLET (FP) PO SCH (22:29)
[2021-06-08] MEDS: QUEtiapine FUMARATE 100 MG TABLET (FP) PO SCH (22:29)
[2021-06-09] MEDS: diazePAM 5 MG TABLET PO SCH ×2 (05:24→19:15)
[2021-06-09] MEDS: hydrOXYzine PAMOATE 25 MG CAPSULE (FP) PO SCH ×5 (05:24→23:02)
[2021-06-09] MEDS: ELVITEG/COB/EMTRI/TENOF (GENVOYA) TABLET (NF) PO SCH (07:31)
[2021-06-09 11:35] LABS: BLOOD UREA NITROGEN 20.6 mg/dL (7-18); CALCIUM 10.6 mg/dL (8.5-10.1)
[2021-06-09 11:38] LABS: CREATININE 1.6 mg/dL (0.55-1.3)
[2021-06-09 11:40] LABS: BILIRUBIN,TOTAL 0.6 mg/dL (0.2-1); TOT PROT 6.8 g/dl (6.4-8.2)
[2021-06-09] MEDS ORDERED: LACTULOSE 20 GM/30 ML UDC (FOR ORAL USE ONLY) PO PRN (11:40)
[2021-06-09] MEDS ORDERED: LACTULOSE 20 GM/30 ML UDC (FOR ORAL USE ONLY) PO ONE (12:30)
[2021-06-09] MEDS: PRENATAL VITAMINS W/ FOLIC ACID TABLET (FP) PO SCH (12:44)
[2021-06-09 15:08] LABS: HEMATOCRIT 44.5 % (35.4-49); HEMOGLOBIN 14.9 GM/dL (11.7-16.9); MCHC 33.5 g/dl (32.0-35.9); MEAN CELL VOLUME 101.4 fl (80-96); MEAN PLT VOLUME 7.4 fl (7.5-11.1); PLATELET COUNT 204 10^3/uL (134-434); RBC 4.39 M/mm3 (4.00-5.60); RDW 14.3 % (11.9-15.9)
[2021-06-09 15:16] LABS: INR 1.17 (0.83-1.09); PROTHROMBIN TIME (PATIENT) 13.1 SEC (9.7-13.0)
[2021-06-09] MEDS: THIAMINE HCL 100 MG TABLET (FP) PO SCH (23:01)
[2021-06-09] MEDS: QUEtiapine FUMARATE 100 MG TABLET (FP) PO SCH (23:03)
[2021-06-10] MEDS ORDERED: diazePAM 5 MG TABLET PO ONE (06:00)
[2021-06-10] MEDS: hydrOXYzine PAMOATE 25 MG CAPSULE (FP) PO SCH ×5 (06:10→22:22)
[2021-06-10] MEDS: ELVITEG/COB/EMTRI/TENOF (GENVOYA) TABLET (NF) PO SCH (07:14)
[2021-06-10] MEDS ORDERED: methaDONE HCL 10 MG TABLET (FOR DETOX USE ONLY) PO ONE (10:00)
[2021-06-10] MEDS: PRENATAL VITAMINS W/ FOLIC ACID TABLET (FP) PO SCH (10:18)
[2021-06-10] MEDS: QUEtiapine FUMARATE 100 MG TABLET (FP) PO SCH (22:22)
[2021-06-10] MEDS: THIAMINE HCL 100 MG TABLET (FP) PO SCH (22:22)
[2021-06-11] MEDS: hydrOXYzine PAMOATE 25 MG CAPSULE (FP) PO SCH ×5 (05:54→22:39)
[2021-06-11] MEDS: ELVITEG/COB/EMTRI/TENOF (GENVOYA) TABLET (NF) PO SCH (07:03)
[2021-06-11] MEDS: PRENATAL VITAMINS W/ FOLIC ACID TABLET (FP) PO SCH (10:44)
[2021-06-11] MEDS: THIAMINE HCL 100 MG TABLET (FP) PO SCH (22:39)
[2021-06-12] MEDS: hydrOXYzine PAMOATE 25 MG CAPSULE (FP) PO SCH (05:33)
[2021-06-12] MEDS: ELVITEG/COB/EMTRI/TENOF (GENVOYA) TABLET (NF) PO SCH (07:40)
[2021-06-12 09:11] VITALS: BP 92/57; PULSE 76; TEMP 97.1
== END 2021-06-12 09:20 | disposition home or self-care (01) | DRG 773 ==
LOC: YASAS 11:24 → Y3N 13:31
PROVIDERS: ADMIT Allergy & Immunology; ATTEND Allergy & Immunology
PROC: HZ2ZZZZ Detoxification Services for Substance Abuse Treatment (ICD-10-PCS; principal; 2021-06-06)
DX: F11.23 Opioid dependence with withdrawal (principal); F10.230 Alcohol dependence with withdrawal, uncomplicated; F14.20 Cocaine dependence, uncomplicated; F17.210 Nicotine dependence, cigarettes, uncomplicated; F90.9 Attention-deficit hyperactivity disorder, unspecified type; F31.9 Bipolar disorder, unspecified; F20.9 Schizophrenia, unspecified; F41.9 Anxiety disorder, unspecified; F19.24 Other psychoactive substance dependence with psychoactive substance-induced mood disorder; Z21 Asymptomatic human immunodeficiency virus [HIV] infection status; E72.20 Disorder of urea cycle metabolism, unspecified; E86.0 Dehydration; K21.9 Gastro-esophageal reflux disease without esophagitis; Z88.0 Allergy status to penicillin; Z56.0 Unemployment, unspecified; Z59.00 Homelessness unspecified
CPT/HCPCS: 36415; 80053; 82140; 82310; 85027; 85610; 86780; C9803; U0003; U0005

== ENCOUNTER 2022-01-24 12:29 | Inpatient (IN) | payer OTHER ==
[2022-01-24 15:26] VITALS: BMI 25.0
[2022-01-24] MEDS ORDERED: BISMUTH SUBSALICYLATE 524 MG/30 ML PO PRN (16:49)
[2022-01-24] MEDS ORDERED: BENZOCAINE/MENTHOL (CHLORASEPTIC ) LOZENGE MM PRN (16:49)
[2022-01-24] MEDS ORDERED: chlordiazePOXIDE HCL 25 MG CAPSULE PO PRN (16:49)
[2022-01-24] MEDS ORDERED: MAG HYDROX/AL HYDROX/SIMETH 30 ML UNIT-DOSE CUP PO PRN (16:49)
[2022-01-24] MEDS ORDERED: IBUPROFEN 400 MG TABLET (FP) PO PRN (16:49)
[2022-01-24] MEDS ORDERED: NICOTINE 10 MG CARTRIDGE (INHALER) IH PRN (16:49)
[2022-01-24] MEDS ORDERED: LOPERAMIDE HCL 2 MG CAPSULE PO PRN (16:49)
[2022-01-24] MEDS ORDERED: MAGNESIUM HYDROX 2400MG/30ML ORAL SUSPENSION 30 ML CUP PO PRN (16:49)
[2022-01-24] MEDS ORDERED: MAGNESIUM CITRATE 300 ML BOTTLE PO PRN (16:49)
[2022-01-24] MEDS ORDERED: ONDANSETRON *ODT* 4 MG TABLET SL PRN (16:49)
[2022-01-24] MEDS ORDERED: DICYCLOMINE HCL 10 MG CAPSULE PO PRN (16:49)
[2022-01-24] MEDS ORDERED: ACETAMINOPHEN 325 MG TABLET (FP) PO PRN ×2 (16:49)
[2022-01-24] MEDS: hydrOXYzine PAMOATE 25 MG CAPSULE (FP) PO SCH ×2 (18:57→22:56)
[2022-01-24] MEDS: chlordiazePOXIDE HCL 25 MG CAPSULE PO SCH ×2 (19:45→22:54)
[2022-01-24] MEDS: THIAMINE HCL 100 MG TABLET (FP) PO SCH (22:56)
[2022-01-24] MEDS: MELATONIN 5 MG TABLETS PO SCH (22:56)
[2022-01-25] MEDS: hydrOXYzine PAMOATE 25 MG CAPSULE (FP) PO SCH ×5 (05:56→23:57)
[2022-01-25] MEDS: METHOCARBAMOL 500 MG TABLET PO PRN (05:56)
[2022-01-25] MEDS: chlordiazePOXIDE HCL 25 MG CAPSULE PO SCH ×4 (05:57→22:31)
[2022-01-25] MEDS: PRENATAL VITAMINS W/ FOLIC ACID TABLET (FP) PO SCH (10:56)
[2022-01-25 11:14] LABS: HEMOGLOBIN 13.2 GM/dL (11.7-16.9); MCH 32.5 pg (25.7-33.7); MCHC 33.1 g/dl (32.0-35.9); MEAN CELL VOLUME 98.1 fl (80-96); MEAN PLT VOLUME 7.3 fl (7.5-11.1); PLATELET COUNT 214 10^3/uL (134-434); RBC 4.08 M/mm3 (4.00-5.60); RDW 14.1 % (11.9-15.9); WHITE BLOOD COUNT 3.5 K/mm3 (4.0-10.0)
[2022-01-25 12:15] LABS: CALCIUM 10.9 mg/dL (8.5-10.1)
[2022-01-25 12:16] LABS: ALBUMIN 3.3 g/dl (3.4-5.0); BLOOD UREA NITROGEN 21.6 mg/dL (7-18)
[2022-01-25 12:20] LABS: BILIRUBIN,TOTAL 0.3 mg/dL (0.2-1)
[2022-01-25 12:21] LABS: TOT PROT 6.4 g/dl (6.4-8.2)
[2022-01-25] MEDS: BENZTROPINE MESYLATE 0.5 MG TABLET (FP) PO SCH ×2 (13:02→22:31)
[2022-01-25] MEDS: CITALOPRAM HYDROBROMIDE 10 MG TABLET PO SCH (13:02)
[2022-01-25] MEDS: MELATONIN 5 MG TABLETS PO SCH (22:31)
[2022-01-25] MEDS: OLANZapine 10 MG TABLET PO SCH (22:31)
[2022-01-25] MEDS: THIAMINE HCL 100 MG TABLET (FP) PO SCH (22:32)
[2022-01-26] MEDS: chlordiazePOXIDE HCL 25 MG CAPSULE PO SCH ×4 (06:01→22:22)
[2022-01-26] MEDS: hydrOXYzine PAMOATE 25 MG CAPSULE (FP) PO SCH ×5 (06:01→22:21)
[2022-01-26] MEDS: PRENATAL VITAMINS W/ FOLIC ACID TABLET (FP) PO SCH (10:23)
[2022-01-26] MEDS: CITALOPRAM HYDROBROMIDE 10 MG TABLET PO SCH (10:23)
[2022-01-26] MEDS: BENZTROPINE MESYLATE 0.5 MG TABLET (FP) PO SCH (10:23)
[2022-01-26] MEDS: METHOCARBAMOL 500 MG TABLET PO PRN (19:08)
[2022-01-26] MEDS: MELATONIN 5 MG TABLETS PO SCH (22:20)
[2022-01-26] MEDS: OLANZapine 10 MG TABLET PO SCH (22:21)
[2022-01-26] MEDS: BENZTROPINE MESYLATE 1 MG TABLET PO SCH (22:21)
[2022-01-26] MEDS: THIAMINE HCL 100 MG TABLET (FP) PO SCH (22:21)
[2022-01-26] MEDS: IBUPROFEN 600 MG TABLET (FP) PO PRN (22:23)
[2022-01-27] MEDS ORDERED: chlordiazePOXIDE HCL 10 MG CAPSULE PO PRN
[2022-01-27] MEDS: hydrOXYzine PAMOATE 25 MG CAPSULE (FP) PO SCH ×5 (05:32→22:53)
[2022-01-27] MEDS: chlordiazePOXIDE HCL 10 MG CAPSULE PO SCH ×4 (05:32→22:53)
[2022-01-27] MEDS: CITALOPRAM HYDROBROMIDE 10 MG TABLET PO SCH (10:27)
[2022-01-27] MEDS: PRENATAL VITAMINS W/ FOLIC ACID TABLET (FP) PO SCH (10:27)
[2022-01-27] MEDS: BENZTROPINE MESYLATE 1 MG TABLET PO SCH ×2 (10:28→22:53)
[2022-01-27 12:46] LABS: CALCIUM 10.8 mg/dL (8.5-10.1)
[2022-01-27 12:47] LABS: ALBUMIN 3.3 g/dl (3.4-5.0); BLOOD UREA NITROGEN 24.2 mg/dL (7-18)
[2022-01-27 12:50] LABS: CREATININE 1.1 mg/dL (0.55-1.3)
[2022-01-27 12:52] LABS: BILIRUBIN,TOTAL 0.5 mg/dL (0.2-1); TOT PROT 6.6 g/dl (6.4-8.2)
[2022-01-27] MEDS: THIAMINE HCL 100 MG TABLET (FP) PO SCH (22:53)
[2022-01-27] MEDS: MELATONIN 5 MG TABLETS PO SCH (22:53)
[2022-01-27] MEDS: METHOCARBAMOL 500 MG TABLET PO PRN (22:54)
[2022-01-27] MEDS: OLANZapine 10 MG TABLET PO SCH (22:54)
[2022-01-28] MEDS: hydrOXYzine PAMOATE 25 MG CAPSULE (FP) PO SCH ×5 (05:48→22:40)
[2022-01-28] MEDS: chlordiazePOXIDE HCL 10 MG CAPSULE PO SCH ×2 (05:50→18:07)
[2022-01-28] MEDS: CITALOPRAM HYDROBROMIDE 10 MG TABLET PO SCH (10:35)
[2022-01-28] MEDS: BENZTROPINE MESYLATE 1 MG TABLET PO SCH ×2 (10:36→22:39)
[2022-01-28] MEDS: METHOCARBAMOL 500 MG TABLET PO PRN ×2 (10:36→18:09)
[2022-01-28] MEDS: PRENATAL VITAMINS W/ FOLIC ACID TABLET (FP) PO SCH (10:36)
[2022-01-28] MEDS: THIAMINE HCL 100 MG TABLET (FP) PO SCH (22:39)
[2022-01-28] MEDS: OLANZapine 10 MG TABLET PO SCH (22:39)
[2022-01-28] MEDS: MELATONIN 5 MG TABLETS PO SCH (22:39)
[2022-01-29] MEDS ORDERED: chlordiazePOXIDE HCL 10 MG CAPSULE PO ONE (05:00)
[2022-01-29] MEDS: hydrOXYzine PAMOATE 25 MG CAPSULE (FP) PO SCH ×3 (05:51→13:55)
[2022-01-29] MEDS: IBUPROFEN 600 MG TABLET (FP) PO PRN (05:51)
[2022-01-29 09:03] VITALS: BP 126/101; PULSE 101; TEMP 97.7
[2022-01-29] MEDS: PRENATAL VITAMINS W/ FOLIC ACID TABLET (FP) PO SCH (10:25)
[2022-01-29] MEDS: BENZTROPINE MESYLATE 1 MG TABLET PO SCH (10:25)
[2022-01-29] MEDS: CITALOPRAM HYDROBROMIDE 10 MG TABLET PO SCH (10:26)
== END 2022-01-29 14:00 | disposition other institution (70) | DRG 774 ==
LOC: YASAS 12:29 → Y6N 17:39
PROVIDERS: ADMIT Allergy & Immunology; ATTEND Surgery
PROC: HZ2ZZZZ Detoxification Services for Substance Abuse Treatment (ICD-10-PCS; principal; 2022-01-24)
DX: F10.230 Alcohol dependence with withdrawal, uncomplicated (principal); F14.20 Cocaine dependence, uncomplicated; F12.20 Cannabis dependence, uncomplicated; F17.210 Nicotine dependence, cigarettes, uncomplicated; F25.9 Schizoaffective disorder, unspecified; F31.9 Bipolar disorder, unspecified; F41.9 Anxiety disorder, unspecified; Z21 Asymptomatic human immunodeficiency virus [HIV] infection status; K21.9 Gastro-esophageal reflux disease without esophagitis; R74.01 Elevation of levels of liver transaminase levels; E87.8 Other disorders of electrolyte and fluid balance, not elsewhere classified; Z88.0 Allergy status to penicillin; Z59.01 Sheltered homelessness
CPT/HCPCS: 36415; 80053; 82310; 84520; 85027; 86780; C9803-CS; U0003; U0005

== ENCOUNTER 2022-01-29 13:46 | Inpatient (IN) | payer OTHER ==
[2022-01-29] MEDS ORDERED: LOPERAMIDE HCL 2 MG CAPSULE PO PRN (15:53)
[2022-01-29] MEDS ORDERED: BENZOCAINE/MENTHOL (CHLORASEPTIC ) LOZENGE MM PRN (15:53)
[2022-01-29] MEDS ORDERED: MAGNESIUM CITRATE 300 ML BOTTLE PO PRN (15:53)
[2022-01-29] MEDS ORDERED: MAGNESIUM HYDROX 2400MG/30ML ORAL SUSPENSION 30 ML CUP PO PRN (15:53)
[2022-01-29] MEDS ORDERED: ACETAMINOPHEN 325 MG TABLET (FP) PO PRN (15:53)
[2022-01-29] MEDS ORDERED: P-EPHED 60MG/TRIPROLIDI 2.5MG TABLET PO PRN (15:53)
[2022-01-29] MEDS ORDERED: MAG HYDROX/AL HYDROX/SIMETH 30 ML UNIT-DOSE CUP PO PRN (15:53)
[2022-01-29] MEDS ORDERED: guaiFENesin 200 MG/10 ML 10 ML UNIT-DOSE CUPS PO PRN (15:53)
[2022-01-29] MEDS ORDERED: BUPRENORPHINE/NALOXONE 4 MG/1 MG FILM PACKET SL ONE (16:00)
[2022-01-29] MEDS: BUPRENORPHINE/NALOXONE 4 MG/1 MG FILM PACKET SL SCH (17:07)
[2022-01-29] MEDS: THIAMINE HCL 100 MG TABLET (FP) PO SCH (21:15)
[2022-01-29] MEDS: BENZTROPINE MESYLATE 0.5 MG TABLET (FP) PO SCH (21:15)
[2022-01-29] MEDS: MELATONIN 5 MG TABLETS PO SCH (21:16)
[2022-01-29] MEDS ORDERED: OLANZapine 5 MG TABLET PO SCH (22:00)
[2022-01-30] MEDS: BUPRENORPHINE/NALOXONE 4 MG/1 MG FILM PACKET SL SCH ×2 (06:58→18:22)
[2022-01-30] MEDS ORDERED: CITALOPRAM HYDROBROMIDE 10 MG TABLET PO SCH (10:00)
[2022-01-30] MEDS: BENZTROPINE MESYLATE 0.5 MG TABLET (FP) PO SCH (10:30)
[2022-01-30] MEDS: PRENATAL VITAMINS W/ FOLIC ACID TABLET (FP) PO SCH (10:32)
[2022-01-30] MEDS: NICOTINE 7 MG/24 HOURS TOPICAL PATCH TD SCH (10:32)
[2022-01-30] MEDS ORDERED: PNEUMOC 20-VAL CONJ-DIP CRM/PF 0.5 ML SYRINGE IM ONE (12:00)
[2022-01-30] MEDS: COLLOIDAL OATMEAL 1 BAR EACH TP PRN (12:37)
[2022-01-30] MEDS: TOLNAFTATE 1% CREAM 15 GM TUBE TP SCH ×2 (12:37→22:14)
[2022-01-30] MEDS: MELATONIN 5 MG TABLETS PO SCH (21:26)
[2022-01-30] MEDS: THIAMINE HCL 100 MG TABLET (FP) PO SCH (21:26)
[2022-01-30] MEDS: traZODone HCL 50 MG TABLET (FP) PO SCH (21:26)
[2022-01-30] MEDS: risperiDONE 1 MG TABLET PO SCH (22:08)
[2022-01-31] MEDS: IBUPROFEN 400 MG TABLET (FP) PO PRN ×2 (03:44→09:43)
[2022-01-31] MEDS: NYSTATIN 500,000 UNITS/5 ML SUSPENSION PO SCH ×3 (06:15→18:05)
[2022-01-31] MEDS: BUPRENORPHINE/NALOXONE 4 MG/1 MG FILM PACKET SL SCH ×2 (06:15→18:05)
[2022-01-31] MEDS: NICOTINE 7 MG/24 HOURS TOPICAL PATCH TD SCH (09:43)
[2022-01-31] MEDS: PRENATAL VITAMINS W/ FOLIC ACID TABLET (FP) PO SCH (09:43)
[2022-01-31] MEDS: risperiDONE 1 MG TABLET PO SCH ×2 (09:44→21:47)
[2022-01-31] MEDS: TOLNAFTATE 1% CREAM 15 GM TUBE TP SCH ×2 (09:46→21:47)
[2022-01-31] MEDS: traZODone HCL 50 MG TABLET (FP) PO SCH (21:47)
[2022-01-31] MEDS: MELATONIN 5 MG TABLETS PO SCH (21:47)
[2022-01-31] MEDS: METHOCARBAMOL 500 MG TABLET PO PRN (21:47)
[2022-01-31] MEDS: hydrOXYzine PAMOATE 25 MG CAPSULE (FP) PO PRN (21:47)
[2022-01-31] MEDS: THIAMINE HCL 100 MG TABLET (FP) PO SCH (21:47)
[2022-02-01] MEDS: NYSTATIN 500,000 UNITS/5 ML SUSPENSION PO SCH ×4 (01:57→17:08)
[2022-02-01] MEDS: BUPRENORPHINE/NALOXONE 4 MG/1 MG FILM PACKET SL SCH ×2 (06:28→17:08)
[2022-02-01] MEDS: NICOTINE 7 MG/24 HOURS TOPICAL PATCH TD SCH (09:32)
[2022-02-01] MEDS: risperiDONE 1 MG TABLET PO SCH ×2 (09:33→21:13)
[2022-02-01] MEDS: TOLNAFTATE 1% CREAM 15 GM TUBE TP SCH ×2 (09:33→21:14)
[2022-02-01] MEDS: PRENATAL VITAMINS W/ FOLIC ACID TABLET (FP) PO SCH (09:33)
[2022-02-01] MEDS: IBUPROFEN 400 MG TABLET (FP) PO PRN (17:08)
[2022-02-01] MEDS: MELATONIN 5 MG TABLETS PO SCH (21:13)
[2022-02-01] MEDS: THIAMINE HCL 100 MG TABLET (FP) PO SCH (21:13)
[2022-02-01] MEDS: traZODone HCL 50 MG TABLET (FP) PO SCH (21:13)
[2022-02-02] MEDS: NYSTATIN 500,000 UNITS/5 ML SUSPENSION PO SCH ×4 (00:40→18:22)
[2022-02-02] MEDS: BUPRENORPHINE/NALOXONE 4 MG/1 MG FILM PACKET SL SCH ×2 (06:07→18:22)
[2022-02-02] MEDS: risperiDONE 1 MG TABLET PO SCH ×2 (10:53→21:37)
[2022-02-02] MEDS: PRENATAL VITAMINS W/ FOLIC ACID TABLET (FP) PO SCH (10:54)
[2022-02-02] MEDS: NICOTINE 7 MG/24 HOURS TOPICAL PATCH TD SCH (10:54)
[2022-02-02] MEDS: TOLNAFTATE 1% CREAM 15 GM TUBE TP SCH ×2 (10:54→22:09)
[2022-02-02] MEDS: COLLOIDAL OATMEAL 1 BAR EACH TP PRN (12:58)
[2022-02-02] MEDS: THIAMINE HCL 100 MG TABLET (FP) PO SCH (21:37)
[2022-02-02] MEDS: traZODone HCL 50 MG TABLET (FP) PO SCH (21:37)
[2022-02-02] MEDS: MELATONIN 5 MG TABLETS PO SCH (21:37)
[2022-02-02] MEDS: NICOTINE 10 MG CARTRIDGE (INHALER) IH PRN (22:13)
[2022-02-03] MEDS: NYSTATIN 500,000 UNITS/5 ML SUSPENSION PO SCH ×4 (01:39→18:10)
[2022-02-03] MEDS: BUPRENORPHINE/NALOXONE 4 MG/1 MG FILM PACKET SL SCH ×2 (06:21→18:10)
[2022-02-03] MEDS: PRENATAL VITAMINS W/ FOLIC ACID TABLET (FP) PO SCH (09:57)
[2022-02-03] MEDS: risperiDONE 1 MG TABLET PO SCH ×2 (09:58→21:10)
[2022-02-03] MEDS: NICOTINE 7 MG/24 HOURS TOPICAL PATCH TD SCH (09:58)
[2022-02-03] MEDS: TOLNAFTATE 1% CREAM 15 GM TUBE TP SCH ×2 (09:59→21:10)
[2022-02-03] MEDS: traZODone HCL 50 MG TABLET (FP) PO SCH (21:09)
[2022-02-03] MEDS: hydrOXYzine PAMOATE 25 MG CAPSULE (FP) PO PRN (21:09)
[2022-02-03] MEDS: MELATONIN 5 MG TABLETS PO SCH (21:09)
[2022-02-03] MEDS: THIAMINE HCL 100 MG TABLET (FP) PO SCH (21:10)
[2022-02-04] MEDS: NYSTATIN 500,000 UNITS/5 ML SUSPENSION PO SCH ×5 (01:07→23:19)
[2022-02-04] MEDS: BUPRENORPHINE/NALOXONE 4 MG/1 MG FILM PACKET SL SCH ×2 (06:17→17:14)
[2022-02-04] MEDS: TOLNAFTATE 1% CREAM 15 GM TUBE TP SCH ×2 (10:02→21:38)
[2022-02-04] MEDS: NICOTINE 7 MG/24 HOURS TOPICAL PATCH TD SCH (10:03)
[2022-02-04] MEDS: PRENATAL VITAMINS W/ FOLIC ACID TABLET (FP) PO SCH (10:03)
[2022-02-04] MEDS: risperiDONE 1 MG TABLET PO SCH ×2 (10:03→21:35)
[2022-02-04] MEDS: MELATONIN 5 MG TABLETS PO SCH (21:35)
[2022-02-04] MEDS: THIAMINE HCL 100 MG TABLET (FP) PO SCH (21:35)
[2022-02-04] MEDS: traZODone HCL 50 MG TABLET (FP) PO SCH (21:35)
[2022-02-04] MEDS: hydrOXYzine PAMOATE 25 MG CAPSULE (FP) PO PRN (21:35)
[2022-02-05] MEDS: NYSTATIN 500,000 UNITS/5 ML SUSPENSION PO SCH ×4 (06:07→23:29)
[2022-02-05] MEDS: BUPRENORPHINE/NALOXONE 4 MG/1 MG FILM PACKET SL SCH ×2 (06:07→17:09)
[2022-02-05] MEDS: IBUPROFEN 400 MG TABLET (FP) PO PRN (06:09)
[2022-02-05] MEDS: NICOTINE 7 MG/24 HOURS TOPICAL PATCH TD SCH (09:57)
[2022-02-05] MEDS: risperiDONE 1 MG TABLET PO SCH ×2 (09:59→21:19)
[2022-02-05] MEDS: PRENATAL VITAMINS W/ FOLIC ACID TABLET (FP) PO SCH (09:59)
[2022-02-05] MEDS: TOLNAFTATE 1% CREAM 15 GM TUBE TP SCH ×2 (09:59→21:20)
[2022-02-05] MEDS: MELATONIN 5 MG TABLETS PO SCH (21:19)
[2022-02-05] MEDS: THIAMINE HCL 100 MG TABLET (FP) PO SCH (21:19)
[2022-02-05] MEDS: COLLOIDAL OATMEAL 1 BAR EACH TP PRN (21:21)
[2022-02-05] MEDS: traZODone HCL 50 MG TABLET (FP) PO SCH (21:22)
[2022-02-06] MEDS: BUPRENORPHINE/NALOXONE 4 MG/1 MG FILM PACKET SL SCH ×2 (06:19→17:58)
[2022-02-06] MEDS: NYSTATIN 500,000 UNITS/5 ML SUSPENSION PO SCH ×4 (06:20→23:01)
[2022-02-06] MEDS: NICOTINE 7 MG/24 HOURS TOPICAL PATCH TD SCH (10:04)
[2022-02-06] MEDS: risperiDONE 1 MG TABLET PO SCH ×2 (10:05→21:35)
[2022-02-06] MEDS: TOLNAFTATE 1% CREAM 15 GM TUBE TP SCH ×2 (10:05→21:36)
[2022-02-06] MEDS: PRENATAL VITAMINS W/ FOLIC ACID TABLET (FP) PO SCH (10:05)
[2022-02-06] MEDS: NICOTINE 10 MG CARTRIDGE (INHALER) IH PRN (17:58)
[2022-02-06] MEDS: traZODone HCL 50 MG TABLET (FP) PO SCH (21:35)
[2022-02-06] MEDS: MELATONIN 5 MG TABLETS PO SCH (21:36)
[2022-02-06] MEDS: THIAMINE HCL 100 MG TABLET (FP) PO SCH (21:36)
[2022-02-07] MEDS: BUPRENORPHINE/NALOXONE 4 MG/1 MG FILM PACKET SL SCH ×2 (06:20→18:04)
[2022-02-07 09:18] LABS: HEMATOCRIT 41.3 % (35.4-49); MCH 32.3 pg (25.7-33.7); MCHC 33.9 g/dl (32.0-35.9); MEAN CELL VOLUME 95.1 fl (80-96); MEAN PLT VOLUME 6.8 fl (7.5-11.1); PLATELET COUNT 253 10^3/uL (134-434); RBC 4.35 M/mm3 (4.00-5.60); WHITE BLOOD COUNT 4.8 K/mm3 (4.0-10.0)
[2022-02-07 09:37] LABS: ALBUMIN 3.6 g/dl (3.4-5.0); CALCIUM 10.9 mg/dL (8.5-10.1)
[2022-02-07 09:38] LABS: TOT PROT 7.7 g/dl (6.4-8.2)
[2022-02-07 09:39] LABS: BILIRUBIN,TOTAL 0.2 mg/dL (0.2-1)
[2022-02-07] MEDS: PRENATAL VITAMINS W/ FOLIC ACID TABLET (FP) PO SCH (10:07)
[2022-02-07] MEDS: NICOTINE 7 MG/24 HOURS TOPICAL PATCH TD SCH (10:08)
[2022-02-07] MEDS: risperiDONE 1 MG TABLET PO SCH ×2 (10:09→21:19)
[2022-02-07] MEDS: TOLNAFTATE 1% CREAM 15 GM TUBE TP SCH ×2 (10:10→21:20)
[2022-02-07] MEDS: COLLOIDAL OATMEAL 1 BAR EACH TP PRN (15:10)
[2022-02-07] MEDS: traZODone HCL 50 MG TABLET (FP) PO SCH (21:19)
[2022-02-07] MEDS: MELATONIN 5 MG TABLETS PO SCH (21:19)
[2022-02-07] MEDS: THIAMINE HCL 100 MG TABLET (FP) PO SCH (21:19)
[2022-02-08] MEDS: BUPRENORPHINE/NALOXONE 4 MG/1 MG FILM PACKET SL SCH ×2 (06:17→18:07)
[2022-02-08] MEDS: PRENATAL VITAMINS W/ FOLIC ACID TABLET (FP) PO SCH (09:33)
[2022-02-08] MEDS: risperiDONE 1 MG TABLET PO SCH ×2 (09:33→21:39)
[2022-02-08] MEDS: TOLNAFTATE 1% CREAM 15 GM TUBE TP SCH ×2 (09:34→22:02)
[2022-02-08] MEDS: NICOTINE 7 MG/24 HOURS TOPICAL PATCH TD SCH (09:35)
[2022-02-08] MEDS: THIAMINE HCL 100 MG TABLET (FP) PO SCH (21:39)
[2022-02-08] MEDS: MELATONIN 5 MG TABLETS PO SCH (21:39)
[2022-02-08] MEDS: hydrOXYzine PAMOATE 25 MG CAPSULE (FP) PO PRN (21:39)
[2022-02-08] MEDS: traZODone HCL 50 MG TABLET (FP) PO SCH (21:40)
[2022-02-08] MEDS: METHOCARBAMOL 500 MG TABLET PO PRN (21:40)
[2022-02-09] MEDS: BUPRENORPHINE/NALOXONE 4 MG/1 MG FILM PACKET SL SCH ×2 (06:13→17:55)
[2022-02-09] MEDS: risperiDONE 1 MG TABLET PO SCH ×2 (10:25→21:26)
[2022-02-09] MEDS: PRENATAL VITAMINS W/ FOLIC ACID TABLET (FP) PO SCH (10:25)
[2022-02-09] MEDS: NICOTINE 7 MG/24 HOURS TOPICAL PATCH TD SCH (10:26)
[2022-02-09] MEDS: TOLNAFTATE 1% CREAM 15 GM TUBE TP SCH ×2 (10:26→21:27)
[2022-02-09] MEDS: traZODone HCL 50 MG TABLET (FP) PO SCH (21:26)
[2022-02-09] MEDS: MELATONIN 5 MG TABLETS PO SCH (21:26)
[2022-02-09] MEDS: THIAMINE HCL 100 MG TABLET (FP) PO SCH (21:26)
[2022-02-10] MEDS: BUPRENORPHINE/NALOXONE 4 MG/1 MG FILM PACKET SL SCH ×2 (06:13→18:15)
[2022-02-10] MEDS: NICOTINE 7 MG/24 HOURS TOPICAL PATCH TD SCH (09:50)
[2022-02-10] MEDS: TOLNAFTATE 1% CREAM 15 GM TUBE TP SCH ×2 (09:51→21:13)
[2022-02-10] MEDS: risperiDONE 1 MG TABLET PO SCH ×2 (09:51→21:13)
[2022-02-10] MEDS: PRENATAL VITAMINS W/ FOLIC ACID TABLET (FP) PO SCH (09:51)
[2022-02-10] MEDS: traZODone HCL 50 MG TABLET (FP) PO SCH (21:11)
[2022-02-10] MEDS: THIAMINE HCL 100 MG TABLET (FP) PO SCH (21:11)
[2022-02-10] MEDS: MELATONIN 5 MG TABLETS PO SCH (21:11)
[2022-02-11] MEDS: IBUPROFEN 400 MG TABLET (FP) PO PRN (02:36)
[2022-02-11] MEDS: BUPRENORPHINE/NALOXONE 4 MG/1 MG FILM PACKET SL SCH (06:05)
[2022-02-11 06:37] VITALS: BP 116/69; PULSE 88; RESP 20; TEMP 98.2
[2022-02-11] MEDS: COLLOIDAL OATMEAL 1 BAR EACH TP PRN (08:15)
== END 2022-02-11 08:45 | disposition home or self-care (01) | DRG 772 ==
LOC: YASAS 13:46 → Y3E 13:48
PROVIDERS: ADMIT Allergy & Immunology; ATTEND Family Medicine
PROC: HZ42ZZZ Group Counseling for Substance Abuse Treatment, Cognitive-Behavioral (ICD-10-PCS; principal; 2022-01-29)
DX: F10.20 Alcohol dependence, uncomplicated (principal); F11.20 Opioid dependence, uncomplicated; F14.20 Cocaine dependence, uncomplicated; F17.210 Nicotine dependence, cigarettes, uncomplicated; F25.9 Schizoaffective disorder, unspecified; F31.9 Bipolar disorder, unspecified; B37.0 Candidal stomatitis; B20 Human immunodeficiency virus [HIV] disease; B35.3 Tinea pedis; M62.838 Other muscle spasm; R22.31 Localized swelling, mass and lump, right upper limb; K21.9 Gastro-esophageal reflux disease without esophagitis; Z88.8 Allergy status to other drugs, medicaments and biological substances
CPT/HCPCS: 36415; 73130-TC-RT-FY; 80053; 85027; 90677; J2794

== ENCOUNTER 2022-09-13 19:01 | Inpatient (IN) | payer BC ==
[2022-09-13 19:48] VITALS: BMI 29.4
[2022-09-13] MEDS ORDERED: BISMUTH SUBSALICYLATE 524 MG/30 ML PO PRN (20:27)
[2022-09-13] MEDS ORDERED: ONDANSETRON *ODT* 4 MG TABLET SL PRN (20:27)
[2022-09-13] MEDS ORDERED: IBUPROFEN 400 MG TABLET (FP) PO PRN (20:27)
[2022-09-13] MEDS ORDERED: POLYETHYLENE GLYCOL (HEALTHYLAX) 3350 17 GM PACKET PO PRN (20:27)
[2022-09-13] MEDS ORDERED: LOPERAMIDE HCL 2 MG CAPSULE PO PRN (20:27)
[2022-09-13] MEDS ORDERED: NICOTINE POLACRILEX 2 MG GUM BUC PRN (20:27)
[2022-09-13] MEDS ORDERED: BENZOCAINE/MENTHOL (CHLORASEPTIC ) LOZENGE MM PRN (20:27)
[2022-09-13] MEDS ORDERED: MAG HYDROX/AL HYDROX/SIMETH 30 ML UNIT-DOSE CUP PO PRN (20:27)
[2022-09-13] MEDS ORDERED: NALOXONE HCL (KLOXXADO) 8 MG SPRAY NS PRN (20:27)
[2022-09-13] MEDS ORDERED: hydrOXYzine PAMOATE 25 MG CAPSULE (FP) PO PRN (20:27)
[2022-09-13] MEDS ORDERED: ACETAMINOPHEN 325 MG TABLET (FP) PO PRN ×2 (20:27)
[2022-09-13] MEDS ORDERED: DICYCLOMINE HCL 10 MG CAPSULE PO PRN (20:27)
[2022-09-13] MEDS ORDERED: MAGNESIUM HYDROX 2400MG/30ML ORAL SUSPENSION 30 ML CUP PO PRN (20:27)
[2022-09-13] MEDS: MELATONIN 5 MG TABLETS PO SCH (22:36)
[2022-09-13] MEDS: THIAMINE HCL 100 MG TABLET (FP) PO SCH (22:36)
[2022-09-14] MEDS: NICOTINE 14 MG/24 HOURS TOPICAL PATCH TD SCH (10:25)
[2022-09-14] MEDS: PRENATAL VITAMINS W/ FOLIC ACID TABLET (FP) PO SCH (10:25)
[2022-09-14] MEDS: diazePAM 5 MG TABLET PO SCH ×3 (11:02→22:25)
[2022-09-14] MEDS: BUPRENORPHINE/NALOXONE 4 MG/1 MG FILM PACKET SL SCH ×2 (11:03→22:24)
[2022-09-14] MEDS: METHOCARBAMOL 500 MG TABLET PO PRN ×2 (11:04→22:26)
[2022-09-14 12:22] LABS: HEMOGLOBIN 13.8 GM/dL (11.7-16.9); MCH 31.2 pg (25.7-33.7); MCHC 33.8 g/dl (32.0-35.9); MEAN CELL VOLUME 92.4 fl (80-96); MEAN PLT VOLUME 7.8 fl (7.5-11.1); PLATELET COUNT 197 10^3/uL (134-434); RBC 4.43 M/mm3 (4.00-5.60); RDW 13.8 % (11.9-15.9); WHITE BLOOD COUNT 4.5 K/mm3 (4.0-10.0)
[2022-09-14 12:55] LABS: ALBUMIN 3.6 g/dl (3.4-5.0); BLOOD UREA NITROGEN 13.9 mg/dL (7-18)
[2022-09-14 12:57] LABS: CALCIUM 11.2 mg/dL (8.5-10.1); CREATININE 0.8 mg/dL (0.55-1.3)
[2022-09-14 13:04] LABS: BILIRUBIN,TOTAL 0.8 mg/dL (0.2-1)
[2022-09-14] MEDS: MELATONIN 5 MG TABLETS PO SCH (22:24)
[2022-09-14] MEDS: THIAMINE HCL 100 MG TABLET (FP) PO SCH (22:25)
[2022-09-14] MEDS: IBUPROFEN 600 MG TABLET (FP) PO PRN (22:26)
[2022-09-15] MEDS: diazePAM 5 MG TABLET PO SCH ×4 (05:56→22:15)
[2022-09-15] MEDS: PRENATAL VITAMINS W/ FOLIC ACID TABLET (FP) PO SCH (10:12)
[2022-09-15] MEDS: NICOTINE 14 MG/24 HOURS TOPICAL PATCH TD SCH (10:12)
[2022-09-15] MEDS: BUPRENORPHINE/NALOXONE 4 MG/1 MG FILM PACKET SL SCH ×2 (10:13→22:14)
[2022-09-15] MEDS: MELATONIN 5 MG TABLETS PO SCH (22:13)
[2022-09-15] MEDS: THIAMINE HCL 100 MG TABLET (FP) PO SCH (22:13)
[2022-09-16] MEDS: diazePAM 5 MG TABLET PO SCH ×3 (05:22→22:17)
[2022-09-16] MEDS: PRENATAL VITAMINS W/ FOLIC ACID TABLET (FP) PO SCH (10:22)
[2022-09-16] MEDS: NICOTINE 14 MG/24 HOURS TOPICAL PATCH TD SCH (10:23)
[2022-09-16] MEDS: BUPRENORPHINE/NALOXONE 4 MG/1 MG FILM PACKET SL SCH ×2 (10:24→22:17)
[2022-09-16] MEDS: risperiDONE 2 MG TABLET PO SCH ×2 (11:48→22:17)
[2022-09-16] MEDS: traZODone HCL 50 MG TABLET (FP) PO SCH (22:17)
[2022-09-16] MEDS: THIAMINE HCL 100 MG TABLET (FP) PO SCH (22:17)
[2022-09-16] MEDS: MELATONIN 5 MG TABLETS PO SCH (22:20)
[2022-09-17] MEDS: diazePAM 5 MG TABLET PO SCH ×2 (05:30→17:39)
[2022-09-17] MEDS: BUPRENORPHINE/NALOXONE 4 MG/1 MG FILM PACKET SL SCH ×2 (10:26→22:25)
[2022-09-17] MEDS: risperiDONE 2 MG TABLET PO SCH ×2 (10:26→22:24)
[2022-09-17] MEDS: PRENATAL VITAMINS W/ FOLIC ACID TABLET (FP) PO SCH (10:26)
[2022-09-17] MEDS: NICOTINE 14 MG/24 HOURS TOPICAL PATCH TD SCH (10:26)
[2022-09-17] MEDS: traZODone HCL 50 MG TABLET (FP) PO SCH (22:24)
[2022-09-17] MEDS: THIAMINE HCL 100 MG TABLET (FP) PO SCH (22:24)
[2022-09-17] MEDS: MELATONIN 5 MG TABLETS PO SCH (22:27)
[2022-09-18] MEDS ORDERED: diazePAM 5 MG TABLET PO ONE (06:00)
[2022-09-18 09:50] VITALS: BP 133/65; PULSE 83; RESP 18; TEMP 97.6
[2022-09-18] MEDS: NICOTINE 14 MG/24 HOURS TOPICAL PATCH TD SCH (10:15)
[2022-09-18] MEDS: BUPRENORPHINE/NALOXONE 4 MG/1 MG FILM PACKET SL SCH (10:15)
[2022-09-18] MEDS: risperiDONE 2 MG TABLET PO SCH (10:15)
[2022-09-18] MEDS: PRENATAL VITAMINS W/ FOLIC ACID TABLET (FP) PO SCH (10:15)
[2022-09-18] MEDS: IBUPROFEN 600 MG TABLET (FP) PO PRN (11:28)
== END 2022-09-18 12:10 | disposition home or self-care (01) | DRG 773 ==
LOC: YASAS 19:01 → Y6N 20:38
PROVIDERS: ADMIT Allergy & Immunology; ATTEND Surgery
PROC: HZ2ZZZZ Detoxification Services for Substance Abuse Treatment (ICD-10-PCS; principal; 2022-09-13)
DX: F10.230 Alcohol dependence with withdrawal, uncomplicated (principal); F11.20 Opioid dependence, uncomplicated; F14.20 Cocaine dependence, uncomplicated; F17.210 Nicotine dependence, cigarettes, uncomplicated; F25.9 Schizoaffective disorder, unspecified; F19.282 Other psychoactive substance dependence with psychoactive substance-induced sleep disorder; Z21 Asymptomatic human immunodeficiency virus [HIV] infection status; K21.9 Gastro-esophageal reflux disease without esophagitis; Z88.0 Allergy status to penicillin
CPT/HCPCS: 36415; 80053; 85027; 86780; 87811; C9803-CS; U0003; U0005

== ENCOUNTER 2022-10-23 12:21 | Inpatient (IN) | payer BC ==
[2022-10-23 12:45] VITALS: BMI 26.6
[2022-10-23] MEDS ORDERED: NALOXONE HCL (KLOXXADO) 8 MG SPRAY NS PRN (13:35)
[2022-10-23] MEDS ORDERED: NICOTINE 10 MG CARTRIDGE (INHALER) IH PRN (13:35)
[2022-10-23] MEDS ORDERED: BISMUTH SUBSALICYLATE 524 MG/30 ML PO PRN (13:35)
[2022-10-23] MEDS ORDERED: POLYETHYLENE GLYCOL (HEALTHYLAX) 3350 17 GM PACKET PO PRN (13:35)
[2022-10-23] MEDS ORDERED: P-EPHED 60MG/TRIPROLIDI 2.5MG TABLET PO PRN (13:35)
[2022-10-23] MEDS ORDERED: ONDANSETRON *ODT* 4 MG TABLET SL PRN (13:35)
[2022-10-23] MEDS ORDERED: IBUPROFEN 400 MG TABLET (FP) PO PRN (13:35)
[2022-10-23] MEDS ORDERED: MELATONIN 5 MG TABLETS PO PRN (13:35)
[2022-10-23] MEDS ORDERED: NALOXONE HCL 0.4 MG/ML VIAL IM PRN (13:35)
[2022-10-23] MEDS ORDERED: MAGNESIUM HYDROX 2400MG/30ML ORAL SUSPENSION 30 ML CUP PO PRN (13:35)
[2022-10-23] MEDS ORDERED: LOPERAMIDE HCL 2 MG CAPSULE PO PRN (13:35)
[2022-10-23] MEDS ORDERED: BENZOCAINE/MENTHOL (CHLORASEPTIC ) LOZENGE MM PRN (13:35)
[2022-10-23] MEDS ORDERED: DICYCLOMINE HCL 10 MG CAPSULE PO PRN (13:35)
[2022-10-23] MEDS ORDERED: BENZONATATE 200 MG CAPSULE PO PRN (13:35)
[2022-10-23] MEDS ORDERED: NICOTINE POLACRILEX 2 MG GUM BUC PRN (13:35)
[2022-10-23] MEDS ORDERED: ACETAMINOPHEN 325 MG TABLET (FP) PO PRN (13:35)
[2022-10-23] MEDS ORDERED: IBUPROFEN 600 MG TABLET (FP) PO PRN (13:35)
[2022-10-23] MEDS ORDERED: hydrOXYzine PAMOATE 25 MG CAPSULE (FP) PO PRN (13:35)
[2022-10-23] MEDS ORDERED: guaiFENesin 600 MG TABLET.ER (FP) PO PRN (13:35)
[2022-10-23] MEDS ORDERED: MAG HYDROX/AL HYDROX/SIMETH 30 ML UNIT-DOSE CUP PO PRN (13:35)
[2022-10-23] MEDS ORDERED: NICOTINE 7 MG/24 HOURS TOPICAL PATCH TD ONE (15:35)
[2022-10-23] MEDS: NICOTINE 7 MG/24 HOURS TOPICAL PATCH TD SCH (15:41)
[2022-10-23] MEDS: BUPRENORPHINE/NALOXONE 4 MG/1 MG FILM PACKET SL SCH (22:28)
[2022-10-23] MEDS: traZODone HCL 50 MG TABLET (FP) PO SCH (22:28)
[2022-10-23] MEDS: THIAMINE HCL 100 MG TABLET (FP) PO SCH (22:28)
[2022-10-23] MEDS: risperiDONE 1 MG TABLET PO SCH (22:28)
[2022-10-24 10:06] LABS: HEMATOCRIT 39.2 % (35.4-49); HEMOGLOBIN 13.4 GM/dL (11.7-16.9); MCH 31.7 pg (25.7-33.7); MCHC 34.3 g/dl (32.0-35.9); MEAN CELL VOLUME 92.6 fl (80-96); MEAN PLT VOLUME 7.7 fl (7.5-11.1); PLATELET COUNT 207 10^3/uL (134-434); RBC 4.24 M/mm3 (4.00-5.60); RDW 15.3 % (11.9-15.9); WHITE BLOOD COUNT 3.6 K/mm3 (4.0-10.0)
[2022-10-24 10:16] LABS: ALBUMIN 3.2 g/dl (3.4-5.0); BLOOD UREA NITROGEN 13.6 mg/dL (7-18); CALCIUM 10.7 mg/dL (8.5-10.1)
[2022-10-24 10:19] LABS: BILIRUBIN,TOTAL 0.7 mg/dL (0.2-1)
[2022-10-24 10:20] LABS: TOT PROT 6.2 g/dl (6.4-8.2)
[2022-10-24] MEDS: risperiDONE 1 MG TABLET PO SCH ×2 (10:40→22:32)
[2022-10-24] MEDS: PRENATAL VITAMINS W/ FOLIC ACID TABLET (FP) PO SCH (10:40)
[2022-10-24] MEDS: NICOTINE 7 MG/24 HOURS TOPICAL PATCH TD SCH (10:41)
[2022-10-24] MEDS: BUPRENORPHINE/NALOXONE 4 MG/1 MG FILM PACKET SL SCH ×2 (10:41→22:14)
[2022-10-24] MEDS: traZODone HCL 50 MG TABLET (FP) PO SCH (22:14)
[2022-10-24] MEDS: THIAMINE HCL 100 MG TABLET (FP) PO SCH (22:14)
[2022-10-24 22:24] VITALS: RESP 18
[2022-10-25 06:41] VITALS: BP 119/76; PULSE 54; TEMP 97.8
[2022-10-25] MEDS: BUPRENORPHINE/NALOXONE 4 MG/1 MG FILM PACKET SL SCH (10:46)
[2022-10-25] MEDS: NICOTINE 7 MG/24 HOURS TOPICAL PATCH TD SCH (10:46)
[2022-10-25] MEDS: risperiDONE 1 MG TABLET PO SCH (10:46)
[2022-10-25] MEDS: PRENATAL VITAMINS W/ FOLIC ACID TABLET (FP) PO SCH (10:46)
== END 2022-10-25 12:10 | disposition home or self-care (01) | DRG 773 ==
LOC: YASAS 12:21 → Y6N 14:55
PROVIDERS: ADMIT Allergy & Immunology; ATTEND Surgery
PROC: HZ2ZZZZ Detoxification Services for Substance Abuse Treatment (ICD-10-PCS; principal; 2022-10-23)
DX: F10.230 Alcohol dependence with withdrawal, uncomplicated (principal); F11.20 Opioid dependence, uncomplicated; F14.20 Cocaine dependence, uncomplicated; F17.210 Nicotine dependence, cigarettes, uncomplicated; F25.1 Schizoaffective disorder, depressive type; F19.24 Other psychoactive substance dependence with psychoactive substance-induced mood disorder; Z21 Asymptomatic human immunodeficiency virus [HIV] infection status; K21.9 Gastro-esophageal reflux disease without esophagitis; Z88.0 Allergy status to penicillin
CPT/HCPCS: 36415; 80053; 85027; 86780; 87811; C9803-CS; U0003; U0005

== ENCOUNTER 2023-01-15 21:05 | Inpatient (IN) | payer BC ==
[2023-01-15 22:20] VITALS: BMI 29.1
[2023-01-15] MEDS ORDERED: LOPERAMIDE HCL 2 MG CAPSULE PO PRN (22:50)
[2023-01-15] MEDS ORDERED: BENZOCAINE/MENTHOL (CHLORASEPTIC ) LOZENGE MM PRN (22:50)
[2023-01-15] MEDS ORDERED: MAGNESIUM HYDROX 2400MG/30ML ORAL SUSPENSION 30 ML CUP PO PRN (22:50)
[2023-01-15] MEDS ORDERED: POLYETHYLENE GLYCOL (HEALTHYLAX) 3350 17 GM PACKET PO PRN (22:50)
[2023-01-15] MEDS ORDERED: hydrOXYzine PAMOATE 25 MG CAPSULE (FP) PO PRN (22:50)
[2023-01-15] MEDS ORDERED: AMMONIUM LACTATE 12% LOTION 225 GM BOTTLE TP PRN (22:50)
[2023-01-15] MEDS ORDERED: P-EPHED 60MG/TRIPROLIDI 2.5MG TABLET PO PRN (22:50)
[2023-01-15] MEDS ORDERED: COLLOIDAL OATMEAL 1 BAR EACH TP PRN (22:50)
[2023-01-15] MEDS ORDERED: guaiFENesin 600 MG TABLET.ER (FP) PO PRN (22:50)
[2023-01-15] MEDS ORDERED: BENZONATATE 200 MG CAPSULE PO PRN (22:50)
[2023-01-15] MEDS ORDERED: ACETAMINOPHEN 325 MG TABLET (FP) PO PRN (22:50)
[2023-01-15] MEDS ORDERED: NICOTINE POLACRILEX 2 MG GUM BUC PRN (22:50)
[2023-01-15] MEDS ORDERED: MAG HYDROX/AL HYDROX/SIMETH 30 ML UNIT-DOSE CUP PO PRN (22:50)
[2023-01-15] MEDS ORDERED: IBUPROFEN 600 MG TABLET (FP) PO PRN (22:50)
[2023-01-16] MEDS: MELATONIN 5 MG TABLETS PO SCH ×2 (02:20→21:28)
[2023-01-16] MEDS: PRENATAL VITAMINS W/ FOLIC ACID TABLET (FP) PO SCH (10:08)
[2023-01-16 10:42] LABS: HEMOGLOBIN 15.1 GM/dL (11.7-16.9); MCH 31.6 pg (25.7-33.7); MCHC 34.4 g/dl (32.0-35.9); MEAN CELL VOLUME 91.9 fl (80-96); MEAN PLT VOLUME 7.5 fl (7.5-11.1); PLATELET COUNT 223 10^3/uL (134-434); RBC 4.79 M/mm3 (4.00-5.60); RDW 14.9 % (11.9-15.9); WHITE BLOOD COUNT 6.9 K/mm3 (4.0-10.0)
[2023-01-16 10:46] LABS: POTASSIUM 3.7 mmol/L (3.5-5.1)
[2023-01-16 10:56] LABS: ALBUMIN 4.1 g/dl (3.4-5.0); BLOOD UREA NITROGEN 34.2 mg/dL (7-18)
[2023-01-16 10:59] LABS: CREATININE 1.3 mg/dL (0.55-1.3)
[2023-01-16 11:01] LABS: BILIRUBIN,TOTAL 0.7 mg/dL (0.2-1)
[2023-01-16 18:09] LABS: EPI CELLS 22 /uL (0-25.1); HYALINE CASTS 6 /uL (0-3.1); PH,URINE 6.5 (5.0-8.0); URINE APPEARANCE TURBID; URINE BACTERIA 9 /uL (0-1359); URINE BILIRUBIN NEGATIVE (NEGATIVE); URINE COLOR DK YELLOW; URINE GLUCOSE (UA) NEGATIVE (NEGATIVE); URINE KETONE TRACE (NEGATIVE); URINE LEUK ESTERASE NEGATIVE (NEGATIVE); URINE NITRITE NEGATIVE (NEGATIVE); URINE PROTEIN 1+ (NEGATIVE); URINE RBC 22 /uL (0-23.9); URINE WBC 22 /uL (0-25.8)
[2023-01-16] MEDS: THIAMINE HCL 100 MG TABLET (FP) PO SCH (21:28)
[2023-01-16] MEDS: risperiDONE 1 MG TABLET PO SCH (21:28)
[2023-01-16] MEDS: traZODone HCL 50 MG TABLET (FP) PO SCH (21:28)
[2023-01-16] MEDS: QUEtiapine FUMARATE 100 MG TABLET (FP) PO SCH (21:28)
[2023-01-17] MEDS: risperiDONE 1 MG TABLET PO SCH ×2 (10:01→21:17)
[2023-01-17] MEDS: PRENATAL VITAMINS W/ FOLIC ACID TABLET (FP) PO SCH (10:01)
[2023-01-17] MEDS: traZODone HCL 50 MG TABLET (FP) PO SCH (21:17)
[2023-01-17] MEDS: MELATONIN 5 MG TABLETS PO SCH (21:17)
[2023-01-17] MEDS: QUEtiapine FUMARATE 100 MG TABLET (FP) PO SCH (21:17)
[2023-01-17] MEDS: THIAMINE HCL 100 MG TABLET (FP) PO SCH (21:17)
[2023-01-18] MEDS: PRENATAL VITAMINS W/ FOLIC ACID TABLET (FP) PO SCH (10:07)
[2023-01-18] MEDS: risperiDONE 1 MG TABLET PO SCH ×2 (10:07→21:35)
[2023-01-18] MEDS: traZODone HCL 50 MG TABLET (FP) PO SCH (21:35)
[2023-01-18] MEDS: QUEtiapine FUMARATE 100 MG TABLET (FP) PO SCH (21:35)
[2023-01-18] MEDS: THIAMINE HCL 100 MG TABLET (FP) PO SCH (21:36)
[2023-01-18] MEDS: MELATONIN 5 MG TABLETS PO SCH (21:36)
[2023-01-19] MEDS: PRENATAL VITAMINS W/ FOLIC ACID TABLET (FP) PO SCH (09:55)
[2023-01-19] MEDS: risperiDONE 1 MG TABLET PO SCH ×2 (09:55→21:18)
[2023-01-19] MEDS: VARENICLINE TARTRATE 0.5 MG TAB PO SCH (14:40)
[2023-01-19] MEDS: MELATONIN 5 MG TABLETS PO SCH (21:17)
[2023-01-19] MEDS: QUEtiapine FUMARATE 100 MG TABLET (FP) PO SCH (21:18)
[2023-01-19] MEDS: traZODone HCL 50 MG TABLET (FP) PO SCH (21:18)
[2023-01-19] MEDS: THIAMINE HCL 100 MG TABLET (FP) PO SCH (21:18)
[2023-01-20 07:00] VITALS: RESP 18
[2023-01-20] MEDS: PRENATAL VITAMINS W/ FOLIC ACID TABLET (FP) PO SCH (10:03)
[2023-01-20] MEDS: VARENICLINE TARTRATE 0.5 MG TAB PO SCH (10:03)
[2023-01-20] MEDS: risperiDONE 1 MG TABLET PO SCH ×2 (10:03→21:25)
[2023-01-20] MEDS: traZODone HCL 50 MG TABLET (FP) PO SCH (21:25)
[2023-01-20] MEDS: QUEtiapine FUMARATE 100 MG TABLET (FP) PO SCH (21:25)
[2023-01-20] MEDS: THIAMINE HCL 100 MG TABLET (FP) PO SCH (21:25)
[2023-01-20] MEDS: MELATONIN 5 MG TABLETS PO SCH (21:25)
[2023-01-21] MEDS: PRENATAL VITAMINS W/ FOLIC ACID TABLET (FP) PO SCH (09:44)
[2023-01-21] MEDS: risperiDONE 1 MG TABLET PO SCH ×2 (09:44→21:33)
[2023-01-21] MEDS: VARENICLINE TARTRATE 0.5 MG TAB PO SCH (09:44)
[2023-01-21] MEDS: THIAMINE HCL 100 MG TABLET (FP) PO SCH (21:33)
[2023-01-21] MEDS: MELATONIN 5 MG TABLETS PO SCH (21:33)
[2023-01-21] MEDS: QUEtiapine FUMARATE 100 MG TABLET (FP) PO SCH (21:33)
[2023-01-21] MEDS: traZODone HCL 50 MG TABLET (FP) PO SCH (21:33)
[2023-01-22] MEDS: VARENICLINE TARTRATE 0.5 MG TAB PO SCH (10:05)
[2023-01-22] MEDS: PRENATAL VITAMINS W/ FOLIC ACID TABLET (FP) PO SCH (10:05)
[2023-01-22] MEDS: risperiDONE 1 MG TABLET PO SCH ×2 (10:05→21:58)
[2023-01-22] MEDS: traZODone HCL 50 MG TABLET (FP) PO SCH (21:58)
[2023-01-22] MEDS: THIAMINE HCL 100 MG TABLET (FP) PO SCH (21:58)
[2023-01-22] MEDS: MELATONIN 5 MG TABLETS PO SCH (21:58)
[2023-01-22] MEDS: QUEtiapine FUMARATE 100 MG TABLET (FP) PO SCH (21:58)
[2023-01-23] MEDS: risperiDONE 1 MG TABLET PO SCH ×2 (09:44→21:18)
[2023-01-23] MEDS: PRENATAL VITAMINS W/ FOLIC ACID TABLET (FP) PO SCH (09:44)
[2023-01-23] MEDS: VARENICLINE TARTRATE 0.5 MG TAB PO SCH ×2 (09:44→21:52)
[2023-01-23] MEDS: IBUPROFEN 400 MG TABLET (FP) PO PRN ×2 (13:39→21:19)
[2023-01-23] MEDS: MELATONIN 5 MG TABLETS PO SCH (21:17)
[2023-01-23] MEDS: THIAMINE HCL 100 MG TABLET (FP) PO SCH (21:17)
[2023-01-23] MEDS: traZODone HCL 50 MG TABLET (FP) PO SCH (21:18)
[2023-01-23] MEDS: QUEtiapine FUMARATE 100 MG TABLET (FP) PO SCH (21:18)
[2023-01-24] MEDS: PRENATAL VITAMINS W/ FOLIC ACID TABLET (FP) PO SCH (09:42)
[2023-01-24] MEDS: VARENICLINE TARTRATE 0.5 MG TAB PO SCH ×2 (09:42→21:35)
[2023-01-24] MEDS: risperiDONE 1 MG TABLET PO SCH ×2 (09:42→21:34)
[2023-01-24] MEDS: IBUPROFEN 400 MG TABLET (FP) PO PRN (09:43)
[2023-01-24] MEDS: THIAMINE HCL 100 MG TABLET (FP) PO SCH (21:34)
[2023-01-24] MEDS: traZODone HCL 50 MG TABLET (FP) PO SCH (21:34)
[2023-01-24] MEDS: QUEtiapine FUMARATE 100 MG TABLET (FP) PO SCH (21:34)
[2023-01-24] MEDS: MELATONIN 5 MG TABLETS PO SCH (21:35)
[2023-01-25] MEDS: risperiDONE 1 MG TABLET PO SCH ×2 (09:55→21:18)
[2023-01-25] MEDS: PRENATAL VITAMINS W/ FOLIC ACID TABLET (FP) PO SCH (09:55)
[2023-01-25] MEDS: VARENICLINE TARTRATE 0.5 MG TAB PO SCH ×2 (09:55→21:19)
[2023-01-25] MEDS: QUEtiapine FUMARATE 100 MG TABLET (FP) PO SCH (21:18)
[2023-01-25] MEDS: traZODone HCL 50 MG TABLET (FP) PO SCH (21:18)
[2023-01-25] MEDS: THIAMINE HCL 100 MG TABLET (FP) PO SCH (21:19)
[2023-01-25] MEDS: MELATONIN 5 MG TABLETS PO SCH (21:19)
[2023-01-26] MEDS: VARENICLINE TARTRATE 0.5 MG TAB PO SCH ×2 (09:43→21:31)
[2023-01-26] MEDS: risperiDONE 1 MG TABLET PO SCH ×2 (09:43→21:31)
[2023-01-26] MEDS: PRENATAL VITAMINS W/ FOLIC ACID TABLET (FP) PO SCH (09:43)
[2023-01-26] MEDS: THIAMINE HCL 100 MG TABLET (FP) PO SCH (21:31)
[2023-01-26] MEDS: QUEtiapine FUMARATE 100 MG TABLET (FP) PO SCH (21:31)
[2023-01-26] MEDS: MELATONIN 5 MG TABLETS PO SCH (21:31)
[2023-01-26] MEDS: traZODone HCL 50 MG TABLET (FP) PO SCH (21:31)
[2023-01-27 07:06] VITALS: BP 144/90; PULSE 96; TEMP 98.4
[2023-01-27] MEDS: risperiDONE 1 MG TABLET PO SCH (09:06)
[2023-01-27] MEDS: PRENATAL VITAMINS W/ FOLIC ACID TABLET (FP) PO SCH (09:06)
[2023-01-27] MEDS ORDERED: VARENICLINE TARTRATE 1 MG TAB PO SCH (22:00)
== END 2023-01-27 09:08 | disposition home or self-care (01) | DRG 772 ==
LOC: YASAS 21:05 → Y3W 22:53
PROVIDERS: ADMIT Allergy & Immunology; ATTEND Psychiatry & Neurology Pain Medicine
PROC: HZ42ZZZ Group Counseling for Substance Abuse Treatment, Cognitive-Behavioral (ICD-10-PCS; principal; 2023-01-15)
DX: F14.20 Cocaine dependence, uncomplicated (principal); F11.20 Opioid dependence, uncomplicated; F17.210 Nicotine dependence, cigarettes, uncomplicated; F25.1 Schizoaffective disorder, depressive type; Z21 Asymptomatic human immunodeficiency virus [HIV] infection status; Z91.199 Patient's noncompliance with other medical treatment and regimen due to unspecified reason; Z88.0 Allergy status to penicillin
CPT/HCPCS: 36415; 80053; 81003; 82962; 85027; 86780; 87635

== ENCOUNTER 2024-01-09 15:20 | Inpatient (IN) | payer OTHER ==
[2024-01-09 15:41] VITALS: BMI 25.0
[2024-01-09] MEDS ORDERED: BENZOCAINE/MENTHOL (CHLORASEPTIC ) LOZENGE MM PRN (19:26)
[2024-01-09] MEDS ORDERED: POLYETHYLENE GLYCOL (HEALTHYLAX) 3350 17 GM PACKET PO PRN (19:26)
[2024-01-09] MEDS ORDERED: ACETAMINOPHEN 325 MG TABLET (FP) PO PRN (19:26)
[2024-01-09] MEDS ORDERED: NALOXONE HCL 0.4 MG/ML VIAL IM PRN (19:26)
[2024-01-09] MEDS ORDERED: LOPERAMIDE HCL 2 MG CAPSULE PO PRN (19:26)
[2024-01-09] MEDS ORDERED: guaiFENesin 600 MG TABLET.ER (FP) PO PRN (19:26)
[2024-01-09] MEDS ORDERED: BENZONATATE 200 MG CAPSULE PO PRN (19:26)
[2024-01-09] MEDS ORDERED: IBUPROFEN 400 MG TABLET (FP) PO PRN (19:26)
[2024-01-09] MEDS ORDERED: MAGNESIUM HYDROX 2400MG/30ML ORAL SUSPENSION 30 ML CUP PO PRN (19:26)
[2024-01-09] MEDS ORDERED: NALOXONE (NARCAN) HCL 4 MG/0.1 ML SPRAY NS PRN (19:26)
[2024-01-09] MEDS: MELATONIN 5 MG TABLETS PO SCH (21:59)
[2024-01-09] MEDS: THIAMINE 100 MG TABLET PO SCH (21:59)
[2024-01-09] MEDS: TUBERCULIN PPD 5 TU/0.1ML SYRINGE (IN PATIENT USE ONLY) ID ONE (22:02)
[2024-01-09] MEDS ORDERED: TUBERCULIN PPD 5 TU/0.1ML SYRINGE (IN PATIENT USE ONLY) ID ONE (23:31)
[2024-01-10] MEDS: BICTEGRAV/EMTRICIT/TENOFOV (BIKTARVY) 50-200-25 MG TABLET PO SCH (07:13)
[2024-01-10 08:53] LABS: HEMATOCRIT 38.7 % (35.4-49); HEMOGLOBIN 13.4 GM/dL (11.7-16.9); MCH 33.4 pg (25.7-33.7); MCHC 34.5 g/dl (32.0-35.9); MEAN CELL VOLUME 96.9 fl (80-96); MEAN PLT VOLUME 7.5 fl (7.5-11.1); PLATELET COUNT 178 10^3/uL (134-434); RDW 14.4 % (11.9-15.9); WHITE BLOOD COUNT 3.7 K/mm3 (4.0-10.0)
[2024-01-10 09:04] LABS: CHLORIDE 113 mmol/L (98-107); POTASSIUM 4.6 mmol/L (3.5-5.1); SODIUM 144 mmol/L (136-145)
[2024-01-10 09:09] LABS: ALBUMIN 3.1 g/dl (3.4-5.0); ANION GAP 0 mmol/L (4-13); BLOOD UREA NITROGEN 20.3 mg/dL (7-18); CALCIUM 10.4 mg/dL (8.5-10.1); CO2 31 mmol/L (21-32); GLUCOSE,RANDOM 79 mg/dL (74-106)
[2024-01-10 09:12] LABS: SGOT/AST 14 U/L (15-37); SGPT/ALT 19 U/L (13-61)
[2024-01-10 09:13] LABS: BILIRUBIN,TOTAL 0.5 mg/dL (0.2-1)
[2024-01-10 09:14] LABS: TOT PROT 6.1 g/dl (6.4-8.2)
[2024-01-10 09:15] LABS: ALK PHOS 72 U/L (45-117)
[2024-01-10] MEDS: PRENATAL VITAMINS W/ FOLIC ACID TABLET (FP) PO SCH (10:06)
[2024-01-10] MEDS: NICOTINE 21 MG/24 HOURS TOPICAL PATCH TD SCH (10:07)
[2024-01-10 13:27] LABS: SYPHILIS W/ RPR CONF NON-REACTIVE (NONREACTIVE)
[2024-01-11] MEDS: risperiDONE 1 MG TABLET PO SCH (11:52)
[2024-01-11] MEDS: MAG HYDROX/AL HYDROX/SIMETH 30 ML UNIT-DOSE CUP PO PRN (11:53)
[2024-01-11 17:25] LABS: URINE APPEARANCE CLEAR; URINE BILIRUBIN NEGATIVE (NEGATIVE); URINE COLOR YELLOW; URINE GLUCOSE (UA) NEGATIVE (NEGATIVE); URINE KETONE TRACE (NEGATIVE); URINE LEUK ESTERASE NEGATIVE (NEGATIVE); URINE NITRITE NEGATIVE (NEGATIVE); URINE PROTEIN NEGATIVE (NEGATIVE); URINE UROBILINOGEN 0.2 mg/dL (0.2-1.0)
[2024-01-11] MEDS: traZODone HCL 50 MG TABLET (FP) PO SCH (21:36)
[2024-01-11] MEDS: QUEtiapine FUMARATE 100 MG TABLET (FP) PO SCH (21:37)
[2024-01-13] MEDS: hydrOXYzine PAMOATE 25 MG CAPSULE (FP) PO PRN (06:26)
[2024-01-13] MEDS: BACLOFEN 10 MG TABLET (FP) PO SCH (09:57)
[2024-01-13] MEDS: PANTOPRAZOLE 20 MG TABLET PO SCH (09:57)
[2024-01-18] MEDS: HYDROCHLOROTHIAZIDE 12.5 MG CAPSULE (FP) PO SCH (12:01)
[2024-01-24] MEDS ORDERED: NICOTINE POLACRILEX 4 MG GUM BUC PRN (11:48)
[2024-01-24] MEDS: IBUPROFEN 600 MG TABLET (FP) PO PRN (15:32)
[2024-01-25 07:24] VITALS: TEMP 97.7
[2024-01-25 09:06] VITALS: BP 120/80; PULSE 76; RESP 17
== END 2024-01-25 09:23 | disposition home or self-care (01) | DRG 772 ==
LOC: YASAS 15:20 → Y3NR 20:10 → Y3W 01-10 11:45
PROVIDERS: ADMIT Allergy & Immunology; ATTEND Psychiatry & Neurology Pain Medicine
PROC: HZ42ZZZ Group Counseling for Substance Abuse Treatment, Cognitive-Behavioral (ICD-10-PCS; principal; 2024-01-09)
DX: F14.20 Cocaine dependence, uncomplicated (principal); F11.20 Opioid dependence, uncomplicated; F17.210 Nicotine dependence, cigarettes, uncomplicated; F31.9 Bipolar disorder, unspecified; Z21 Asymptomatic human immunodeficiency virus [HIV] infection status; K21.9 Gastro-esophageal reflux disease without esophagitis; R63.4 Abnormal weight loss; Z68.25 Body mass index [BMI] 25.0-25.9, adult; R00.0 Tachycardia, unspecified
CPT/HCPCS: 36415; 80053; 80305; 80307; 81003; 85027; 86780; 86803; 87811; 93005; 93010; J0475